=== PATIENT | female | born 1990 | race Caucasian/White ===

== ENCOUNTER 2016-09-03 06:38 | Emergency (ER) | payer MEDICAID ==
[~2016-09-03] VITALS: Ht 162.6 cm; Wt 44.1 kg
[~2016-09-03 06:38] MED LIST: MACR100C2 PO; REGL10TA5 PO; SPRI28TA PO
[2016-09-03 06:46] VITALS: BP 121/56; PULSE 87; RESP 18; TEMP 96.2; O2SAT 99
[2016-09-03] MEDS ORDERED: SODIUM CHLOR 0.9% 1000 ML INJ 1,000 ML IV ONE ×2 (07:00→08:30)
[2016-09-03] MEDS ORDERED: ONDANSETRON HCL 4 MG/2 ML VIAL IV PUSH ONE (07:00)
--- NOTE | 2016-09-03 07:03 | PD ---
HPI Chief Complaint: GI Complaint Time Seen by Provider: 06:57 Travel History International Travel<30 days: No Contact w/Intl Traveler<30days: No Traveled to known affect area: No History of Present Illness HPI This is a 25 year old female who presents to the emergency department with sudden onset nausea, vomiting and diarrhea that started last evening at 2 AM, constant, severe, associated with moderate severity cramping abdominal pain. Pt. reports that children around her have been sick with similar symptoms. She does feel feverish. She doesn't think she is , she is on OCPs. PFSH Past Medical History ADHD: No Bipolar Disorder: Yes (DOES NOT TAKE MEDS) Cancer: No Cardiovascular Problems: No Diabetes: No Diminished Hearing: No Genitourinary: Yes (UTI) Psychiatric: Yes Immunizations Current: Yes Migraines: No Seizures: No Thyroid Disease: No Ulcer: No ?: Unknown LMP: "1 month ago" Menopausal: No : 3 Para: 2 Miscarriage: 1 : 0 Past Surgical History Appendectomy: No Cholecystectomy: No Other Surgery: No Social History Alcohol Use: No Tobacco Use: Yes (/2 ppd) Substance Use: Yes (marijuana daily) Allergies-Medications (Allergen,Severity, Reaction): Coded Allergies: No Known Allergies (Unverified , 09/03/16) Reported Meds & Prescriptions Reported Meds & Active Scripts Active Reported Sprintec 28 (Norgestimate-Ethinyl Estradiol) 0.25-35 mg-Mcg Tab 1 Tab PO DAILY Review of Systems Except as stated in HPI: all other systems reviewed are Neg Physical Exam Narrative GENERAL:Well appearing, no acute distress SKIN: Warm and dry. HEAD: Atraumatic. Normocephalic. EYES: Pupils equal and round. No injection or drainage. ENT: Moist mucous membranes NECK: Trachea midline. CARDIOVASCULAR: Regular rate and rhythm. No murmur appreciated. RESPIRATORY: Clear to auscultation. Breath sounds equal bilaterally. GASTROINTESTINAL: Abdomen soft, non-tender, nondistended. MUSCULOSKELETAL: No obvious deformities. NEUROLOGICAL: Awake and alert. No obvious cranial nerve deficits. Moving all extremities. PSYCHIATRIC: Appropriate mood and affect; insight and judgment normal. Data Data Last Documented VS Vital Signs Date Time Temp Pulse Resp B/P Pulse Ox O2 Delivery O2 Flow Rate FiO2 09/03/16 08:24 71 16 106/54 100 Room Air 09/03/16 06:46 96.2 Orders Complete Blood Count With Diff (09/03/16 06:59) Comprehensive Metabolic Panel (09/03/16 06:59) Beta Hcg (Quant/Titer) (09/03/16 06:59) ^ Insert Iv (09/03/16 06:59) Sodium Chlor 0.9% 1000 Ml Inj (Ns 1000 M (09/03/16 07:00) Ondansetron Inj (Zofran Inj) (09/03/16 07:00) Lipase (09/03/16 06:59) Urinalysis - C+S If Indicated (09/03/16 06:59) Urine Culture (09/03/16 07:00) Ct Abd/Pel W Iv Contrast(Rout) (09/03/16 ) Promethazine Inj (Phenergan Inj) (09/03/16 08:00) Morphine Inj (Morphine Inj) (09/03/16 08:00) Iohexol 300 Inj (Rad Ct) (Omnipaque 300 (09/03/16 08:14) Ciprofloxacin 400 Mg Premix (Cipro 400 M (09/03/16 08:30) Metronidazole 500 Mg Inj (Flagyl 500 Mg (09/03/16 08:30) Ondansetron Inj (Zofran Inj) (09/03/16 08:30) Sodium Chlor 0.9% 1000 Ml Inj (Ns 1000 M (09/03/16 08:30) Labs Laboratory Tests Test 09/03/16 07:00 White Blood Count 22.7 TH/MM3 Red Blood Count 4.86 MIL/MM3 Hemoglobin 14.9 GM/DL Hematocrit 42.8 % Mean Corpuscular Volume 88.0 FL Mean Corpuscular Hemoglobin 30.6 PG Mean Corpuscular Hemoglobin 34.8 % Concent Red Cell Distribution Width 13.2 % Platelet Count 411 TH/MM3 Mean Platelet Volume 7.7 FL Neutrophils (%) (Auto) % Lymphocytes (%) (Auto) % Monocytes (%) (Auto) % Eosinophils (%) (Auto) % Basophils (%) (Auto) % Neutrophils # (Auto) TH/MM3 Lymphocytes # (Auto) TH/MM3 Monocytes # (Auto) TH/MM3 Eosinophils # (Auto) TH/MM3 Basophils # (Auto) TH/MM3 CBC Comment AUTO DIFF Differential Total Cells 100 Counted Neutrophils % (Manual) 80 % Band Neutrophils % 3 % Lymphocytes % 12 % Monocytes % 5 % Neutrophils # (Manual) 18.8 TH/MM3 Differential Comment FINAL DIFF MANUAL Platelet Estimate NORMAL Platelet Morphology Comment NORMAL Urine Collection Type CLEAN CATCH Urine Color YELLOW Urine Turbidity CLEAR Urine pH 6.0 Urine Specific [place] 1.025 Urine Protein 30 mg/dL Urine Glucose (UA) NEG mg/dL Urine Ketones TRACE mg/dL Urine Occult Blood NEG Urine Nitrite NEG Urine Bilirubin NEG Urine Leukocyte Esterase NEG Urine RBC 0-3 /hpf Urine WBC 9-14 /hpf Urine WBC Clumps RARE Urine Squamous Epithelial > 8 /hpf Cells Urine Bacteria FEW /hpf Urine Mucus FEW /lpf Microscopic Urinalysis Comment CULTURE INDICATED Urine Collection Time 07:00 Sodium Level 142 MEQ/L Potassium Level 3.7 MEQ/L Chloride Level 109 MEQ/L Carbon Dioxide Level 20.9 MEQ/L Anion Gap 12 MEQ/L Blood Urea Nitrogen 19 MG/DL Creatinine 0.89 MG/DL Estimat Glomerular Filtration 78 ML/MIN Rate Random Glucose 186 MG/DL Calcium Level 9.2 MG/DL Total Bilirubin 0.3 MG/DL Aspartate Amino Transf 17 U/L (AST/SGOT) Alanine Aminotransferase 22 U/L (ALT/SGPT) Alkaline Phosphatase 49 U/L Total Protein 7.7 GM/DL Albumin 4.1 GM/DL Lipase 155 U/L Human Chorionic Gonadotropin, LESS THAN 1 Quant MIU/ML MDM Medical Decision Making Medical Screen Exam Complete: Yes Emergency Medical Condition: Yes Interpretation(s) Hypothermia, no tachycardia, normotensive Leukocytosis with left shift Electrolytes are reassuring Lipase is normal HCG is negative Urinalysis: Some white blood cells Last 24 hours Impressions Abdomen/Pelvis CT 09/03/16 0000 Signed Impressions: Service Date/Time: Saturday, September 03, 2016 08:08 - CONCLUSION: Abnormal pelvis with trace fluid and cystic mass right adnexa. Nonspecific air-fluid levels in the colon in the pelvis.. Sid Kasper MD FACR Differential Diagnosis Gastroenteritis, colitis, appendicitis, dehydration Narrative Course This is a 25-year-old female who presents to the emergency department having woken up in the middle the night with nausea vomiting and diarrhea as well as left lower quadrant abdominal pain. Her daughter is been sick with similar symptoms. She was placed on a monitor and an IV was established. She was found to have a white count of 22.7. Electrolytes are reassuring. She was given 2 L of IV hydration, 2 doses of Zofran and IM Phenergan. She feels much better and was able to tolerate some oral hydration in the emergency Department. I had a conversation with the patient regarding inpatient versus outpatient management. She is young and otherwise healthy. CT is consistent with a likely early colitis with some air-fluid levels in the colon likely due to diarrhea. I think it's reasonable for her to manage this and has an outpatient. I Did give her a dose of IV antibiotics in the setting of her leukocytosis and I will discharge her on Cipro and Flagyl. She will return to the emergency department if she is not able to eat or drink for her symptoms are getting worse. Patient does have an incidental right ovarian cyst that is 3.8 cm. I don't think this is large enough to cause torsion I think her symptoms are much more consistent with a GI etiology. I did advise her to follow-up with an [facility] [facility] ENGINEER as an outpatient. Diagnosis Primary Impression: Colitis Patient Instructions: General Instructions Additional Instructions: If you develop severe or worsening abdominal pain, fever>100.4, persistent vomiting or inability to eat or drink return to the emergency department immediately. Follow up with your primary care physician in 1-2 days for a check-up. You have a 3.8 cm mass/cyst on your ovary which should be further evaluated by an medical record librarian as an outpatient. Med/Other Pt SpecificInfo: Prescription(s) given Scripts Ciprofloxacin 500 Mg Qte139 Mg PO BID 10 Days Prov:Mariela Robbins MD 09/03/16 Metronidazole (Flagyl)500 Mg [id number] Mg PO TID 10 Days Prov:Mariela Robbins MD 09/03/16 Ondansetron Odt (Zofran Odt)4 Mg Tab4 Mg SL Q6HR PRN (Nausea/Vomiting) #15 TAB Prov:Mariela Robbins MD 09/03/16 Disposition: 01 DISCHARGE HOME Condition: Stable Mariela Robbins MD Sep 03, 2016 07:03
[2016-09-03 07:17] LABS: BLOOD, URINE NEG (NEG); GLUCOSE,URINE NEG (NEG); KETONE, URINE TRACE mg/dL (NEG); NITRITE,URINE NEG (NEG)
[2016-09-03 07:18] LABS: HEMATOCRIT 42.8 % (35.0-46.0); MEAN CORPUSCULAR HEMOGLOBIN 30.6 PG (27.0-34.0); MEAN CORPUSCULAR HGB CONC 34.8 % (32.0-36.0); PLATELET COUNT 411 TH/MM3 (150-450); RED BLOOD COUNT 4.86 MIL/MM3 (4.00-5.30); RED CELL DISTRIBUTION WIDTH 13.2 % (11.6-17.2); WHITE BLOOD COUNT 22.7 TH/MM3 (4.0-11.0)
[2016-09-03 07:21] LABS: HEMO FLAGS AUTO DIFF
[2016-09-03 07:26] LABS: BACTERIA, URINE FEW /hpf; CHLORIDE 109 MEQ/L (98-107); COMMENT (UR) CULTURE INDICATED; CULTURE IF INDICATED CULTURE INDICATED; METHOD OF COLLECTION CLEAN CATCH; MUCUS URINE FEW /lpf (OCC); POTASSIUM 3.7 MEQ/L (3.5-5.1); RBC, URINE 0-3 /hpf (0-3); SODIUM (NA) 142 MEQ/L (136-145); SQUAMOUS EPITHELIAL CELL URINE > 8 /hpf (0-5); URINE COLOR YELLOW (YELLW/STRAW)
[2016-09-03 07:30] LABS: ANION GAP 12 MEQ/L (5-15); BICARBONATE 20.9 MEQ/L (21.0-32.0); BLOOD UREA NITROGEN 19 MG/DL (7-18)
[2016-09-03 07:33] LABS: ALT (GPT) 22 U/L (10-53); AST (GOT) 17 U/L (15-37); GLOMERULAR FILTRATION RATE 78 ML/MIN (>89)
[2016-09-03 07:34] LABS: TOTAL BILIRUBIN ADULT 0.3 MG/DL (0.2-1.0)
[2016-09-03 07:36] LABS: ALKALINE PHOSPHATASE 49 U/L (45-117)
[2016-09-03 07:37] LABS: BANDS 3 % (0-6); NEUTROPHIL # MANUAL DIFF 18.8 TH/MM3 (1.8-7.7); POLYS (SEG NEUTROPHILS) 80 % (16-70); WBC DIFF SAMPLE 100
[2016-09-03 07:38] LABS: BETA HCG QUANT LESS THAN 1 MIU/ML (0-5); PLATELET ESTIMATE SMEAR NORMAL (NORMAL); PLATELET MORPHOLOGY NORMAL (NORMAL); SCAN/DIFF FINAL DIFF MANUAL
[2016-09-03] MEDS ORDERED: PROMETHAZINE INJ 25 MG/ML VIAL IM ONE (08:00)
[2016-09-03] MEDS ORDERED: MORPHINE SULFATE 4 MG/ML INJ IV PUSH ONE (08:00)
[2016-09-03] MEDS ORDERED: IOHEXOL 300 MG/ML 100 ML BTL (for Rad CT) IV ONE (08:14)
--- NOTE | 2016-09-03 08:23 | RADHPO ---
EXAM DATE/TIME: 09/03/2016 08:08 [facility] COMPARISON: No previous studies available for comparison. INDICATIONS : Lower abdominal pain with vomiting and diarrhea. IV CONTRAST: 85 cc Omnipaque 300 (iohexol) IV ORAL CONTRAST: No oral contrast ingested. RADIATION DOSE: 4.45 CTDIvol (mGy) MEDICAL HISTORY : None SURGICAL HISTORY : None. ENCOUNTER: Initial ACUITY: 1 day PAIN SCALE: 1/10 LOCATION: lower quadrant TECHNIQUE: Volumetric scanning of the abdomen and pelvis was performed. Using automated exposure control and ad justment of the mA and/or kV according to patient size, radiation dose was kept as low as reasonably achievable to obtain optimal diagnostic quality images. FINDINGS: Very minimal parenchymal changes are present in the medial left base. The liver, spleen, pancreas an d adrenal glands are unremarkable. There is symmetrical renal function. There is no appendicitis. Pelvic contents are abnormal. There is trace fluid evident. There is a 3.8 cm cystic mass in the ri ght adnexa region. The left ovary is prominent. Minimal nonspecific focal bowel dilatation is evident. CONCLUSION: Abnormal pelvis with trace fluid and cystic mass right adnexa. Nonspecific air-fluid levels in the c olon in the pelvis.. Sid Kasper MD FACR on September 03, 2016 at 8:19 Board Certified Radiologist. This report was verified electronically.
[2016-09-03 08:24] VITALS: BP 106/54; PULSE 71; RESP 16; O2SAT 100
[2016-09-03] MEDS ORDERED: ONDANSETRON HCL 4 MG/2 ML VIAL IV ONE (08:30)
[2016-09-03] MEDS ORDERED: metroNIDAZOLE 500 MG INJ 100 ML IV ONE (08:30)
[2016-09-03] MEDS ORDERED: CIPROFLOXACIN 400 MG PREMIX 200 ML IV ONE (08:30)
[2016-09-03] MEDS ORDERED: CIPR500T2 PO (09:30)
[2016-09-03] MEDS ORDERED: ZOFR4TAB3 SL (09:30)
[2016-09-03] MEDS ORDERED: METR-1 PO (09:30)
[2016-09-03 09:48] VITALS: BP 99/49; PULSE 70; RESP 16; O2SAT 100
[2016-09-03 10:53] VITALS: BP 96/51
== END 2016-09-03 10:55 | disposition home or self-care (01) ==
LOC: PHED 06:38
DX: K52.9 Noninfective gastroenteritis and colitis, unspecified (principal); N83.201 Unspecified ovarian cyst, right side; N39.0 Urinary tract infection, site not specified; B96.89 Other specified bacterial agents as the cause of diseases classified elsewhere
CPT/HCPCS: 74177; 80053; 81001; 83690; 84702; 85007; 85027; 87086; 96361; 96365; 96367; 96372; 96375; 96376; 99284; J0744; J2270; J2405; J2550; J7030; Q9967

== ENCOUNTER 2016-10-30 06:02 | Emergency (ER) | payer MEDICAID ==
[~2016-10-30] VITALS: Ht 162.6 cm; Wt 42.0 kg
[~2016-10-30 06:02] MED LIST changes: +CIPR500T2 PO; -MACR100C2 PO; +METR-1 PO; -REGL10TA5 PO; +ZOFR4TAB3 SL
[2016-10-30 06:06] VITALS: BP 111/60; PULSE 71; RESP 14; TEMP 97.5; O2SAT 100
[2016-10-30] MEDS ORDERED: PROCHLORPERAZINE INJ 10 MG/2 ML VIAL IM ONE (06:30)
[2016-10-30] MEDS ORDERED: PROC10TA PO (06:30)
--- NOTE | 2016-10-30 06:30 | PD ---
HPI Chief Complaint: GI Complaint Time Seen by Provider: 06:15 Travel History International Travel<30 days: No Contact w/Intl Traveler<30days: No Traveled to known affect area: No History of Present Illness HPI The patient is a 25-year-old female who presents to the emergency department for vomiting. The patient has a 1 year history of cyclical vomiting. The patient states she will have a 3-4 days and of vomiting, especially in the mornings, approximately every 2 weeks. The patient also notes a history of chronic marijuana use, does note that she will take several hot showers during the day when she has her symptoms in that the hot showers improve her symptoms. The patient does states she stopped smoking marijuana while she was and her symptoms significantly improved. She denies any known history of gastroparesis. She has been diagnosed with gastritis in the past according to her report. The patient denies any abdominal pain or diarrhea. Symptoms are moderate, ongoing for a year, possibly exacerbated by marijuana, and alleviated when she was and not smoking marijuana. PFSH Past Medical History ADHD: No Bipolar Disorder: Yes (DOES NOT TAKE MEDS) Cancer: No Cardiovascular Problems: No Diabetes: No Diminished Hearing: No Genitourinary: Yes (UTI) Psychiatric: Yes Immunizations Current: Yes Migraines: No Seizures: No Thyroid Disease: No Ulcer: No Tetanus Vaccination: < 5 Years Influenza Vaccination: No ?: Not LMP: NOW Menopausal: No : 3 Para: 2 Miscarriage: 1 : 0 Past Surgical History Appendectomy: No Cholecystectomy: No Other Surgery: No Social History Alcohol Use: No Tobacco Use: Yes (1/2 ppd) Substance Use: Yes (marijuana daily) Allergies-Medications (Allergen,Severity, Reaction): Coded Allergies: No Known Allergies (Unverified , 10/30/16) Reported Meds & Prescriptions Reported Meds & Active Scripts Active No Active Prescriptions or Reported Medications Review of Systems Except as stated in HPI: all other systems reviewed are Neg General / Constitutional: No: Fever Cardiovascular: No: Chest Pain or Discomfort Respiratory: No: Shortness of Breath Gastrointestinal: Positive: Nausea, Vomiting, No: Diarrhea, Abdominal Pain Genitourinary: No: Dysuria Physical Exam Narrative GENERAL: Awake, alert, pleasant 25-year-old female who appears her stated age and is in no acute respiratory distress. SKIN: Warm and dry. HEAD: Atraumatic. Normocephalic. EYES: Pupils equal and round. No scleral icterus. No injection or drainage. ENT: No nasal bleeding or discharge. Mucous membranes pink and moist. NECK: Trachea midline. No JVD. GASTROINTESTINAL: Abdomen soft, non-tender, nondistended. No rebound tenderness , guarding, or rigidity. Back: No CVA tenderness. MUSCULOSKELETAL: No obvious deformities. No clubbing. No cyanosis. No edema. NEUROLOGICAL: Awake and alert. No obvious cranial nerve deficits. Motor grossly within normal limits. Normal speech. PSYCHIATRIC: Appropriate mood and affect; insight and judgment normal. Data Data Last Documented VS Vital Signs Date Time Temp Pulse Resp B/P Pulse Ox O2 Delivery O2 Flow Rate FiO2 10/30/16 06:18 16 10/30/16 06:06 97.5 71 111/60 100 Room Air Orders Prochlorperazine Inj (Compazine Inj) (10/30/16 06:30) MDM Medical Decision Making Medical Screen Exam Complete: Yes Emergency Medical Condition: Yes Medical Record Reviewed: Yes Differential Diagnosis Differential diagnosis includes cyclic vomiting syndrome, gastroparesis, cannabis hyperemesis syndrome, electrolyte abnormality, dehydration, morning sickness, . Narrative Course The patient states she has Zofran at home, states Zofran does not help. Therefore, the patient was administered Compazine IM. I advised the patient to try and stop smoking the marijuana to see if this improves her symptoms. The patient may have cannabis hyperemesis syndrome versus cyclic vomiting syndrome versus gastroparesis. She is also advised to follow-up with gastroenterology as directed. Clear liquid diet and advance as tolerated. Diagnosis Primary Impression: Cannabinoid hyperemesis syndrome Patient Instructions: General Instructions Additional Instructions: Stop smoking marijuana. Compazine as directed. Clear liquid diet and advance as tolerated. Follow-up with your primary physician. Med/Other Pt SpecificInfo: Prescription(s) given Scripts Prochlorperazine Maleate 10 Mg Tab10 Mg PO Q6H PRN (NAUSEA OR VOMITING) #15 TAB Ref 0 Prov:Nicholas Austin MD 10/30/16 Disposition: 01 DISCHARGE HOME Nicholas Austin MD Oct 30, 2016 06:30
[2017-02-20] MEDS ORDERED: FE FCAP PO (10:00)
[2017-02-20] MEDS ORDERED: FERR200T PO (10:00)
== END 2016-10-30 06:55 | disposition home or self-care (01) ==
LOC: NEPE 06:02
DX: R11.2 Nausea with vomiting, unspecified (principal); F17.210 Nicotine dependence, cigarettes, uncomplicated; F12.90 Cannabis use, unspecified, uncomplicated
CPT/HCPCS: 96372; 99283; J0780

== ENCOUNTER 2017-01-05 20:53 | Emergency (ER) | payer MEDICAID ==
[~2017-01-05] VITALS: Ht 162.6 cm; Wt 43.0 kg
[~2017-01-05 20:53] MED LIST changes: -CIPR500T2 PO; -METR-1 PO; +PROC10TA PO; -SPRI28TA PO; -ZOFR4TAB3 SL
[2017-01-05 20:54] VITALS: BP 131/69; PULSE 93; RESP 16; TEMP 99.2; O2SAT 100
--- NOTE | 2017-01-05 22:39 | PD ---
HPI Chief Complaint: GI Complaint Time Seen by Provider: 22:38 Travel History International Travel<30 days: No Contact w/Intl Traveler<30days: No Traveled to known affect area: No History of Present Illness HPI 26-year-old female came to the emergency room with history of nausea since yesterday. Been on and off nauseous and getting this warm feeling across her face and back. She is also has some pelvic and left lower quadrant discomfort. She was due for her. Last week but hasn't had one yet. Upon asking she said she did have a chance to be because she has had unprotected sex. She otherwise is a healthy person although she gets frequent vomiting and been in the emergency room for it multiple times. However she says this time it's difference and she is not really throwing up but just nauseous. PFSH Past Medical History Narrative Medical List of her past medical, surgical, social and family history is reviewed from the nursing note. ADHD: No Bipolar Disorder: Yes (DOES NOT TAKE MEDS) Cancer: No Cardiovascular Problems: No Diabetes: No Diminished Hearing: No Genitourinary: Yes (UTI) Psychiatric: Yes Immunizations Current: Yes Migraines: No Seizures: No Thyroid Disease: No Ulcer: No Tetanus Vaccination: < 5 Years Influenza Vaccination: No ?: Unknown LMP: JUST OVER 1 MONTH AGO Menopausal: No : 3 Para: 2 Miscarriage: 1 : 0 Past Surgical History Appendectomy: No Cholecystectomy: No Other Surgery: No Social History Alcohol Use: No Tobacco Use: Yes (1/2 ppd) Substance Use: Yes (marijuana daily) Allergies-Medications (Allergen,Severity, Reaction): Coded Allergies: No Known Allergies (Unverified , 01/05/17) Comments No known drug allergies. Reported Meds & Prescriptions Reported Meds & Active Scripts Active Dha (Docosahexaenoic Acid) 200 Mg Cap 1 Tab PO DAILY Zofran Odt (Ondansetron Odt) 4 Mg Tab 4 Mg SL Q6HR PRN Narrative Medication List of her home medications reviewed from the nursing note. Review of Systems Except as stated in HPI: all other systems reviewed are Neg Physical Exam Narrative GENERAL: Awake, alert, no obvious distress SKIN: Focused skin assessment warm/dry. HEAD: Atraumatic. Normocephalic. EYES: Pupils equal and round. No scleral icterus. No injection or drainage. ENT: No nasal bleeding or discharge. Mucous membranes pink and moist. NECK: Trachea midline. No JVD. CARDIOVASCULAR: Regular rate and rhythm. No murmur appreciated. RESPIRATORY: No accessory muscle use. Clear to auscultation. Breath sounds equal bilaterally. GASTROINTESTINAL: Abdomen soft, non-tender, nondistended. Hepatic and splenic margins not palpable. MUSCULOSKELETAL: No obvious deformities. No clubbing. No cyanosis. No edema. NEUROLOGICAL: Awake and alert. No obvious cranial nerve deficits. Motor grossly within normal limits. Normal speech. PSYCHIATRIC: Appropriate mood and affect; insight and judgment normal. Data Data Last Documented VS Vital Signs Date Time Temp Pulse Resp B/P Pulse Ox O2 Delivery O2 Flow Rate FiO2 01/05/17 20:54 99.2 93 16 131/69 100 Room Air Orders Ed Urine Pregnancytest Poc (01/05/17 22:42) Ondansetron Odt (Zofran Odt) (01/05/17 22:45) Urinalysis - C+S If Indicated (01/05/17 22:42) Labs Laboratory Tests Test 01/05/17 22:45 Urine Color LIGHT-YELLOW Urine Turbidity CLEAR Urine pH 7.0 Urine Specific [place] 1.007 Urine Protein NEG mg/dL Urine Glucose (UA) NEG mg/dL Urine Ketones 10 mg/dL Urine Occult Blood NEG Urine Nitrite NEG Urine Bilirubin NEG Urine Urobilinogen LESS THAN 2.0 MG/DL Urine Leukocyte Esterase NEG Urine RBC LESS THAN 1 /hpf Urine WBC LESS THAN 1 /hpf Urine Squamous Epithelial 3 /hpf Cells Urine Mucus FEW /lpf Microscopic Urinalysis Comment CULT NOT INDICATED MDM Medical Decision Making Medical Screen Exam Complete: Yes Emergency Medical Condition: Yes Medical Record Reviewed: Yes Differential Diagnosis , nausea Narrative Course 10:56 PM bedside urine was positive. Awaiting for UA. Patient has been given by mouth Zofran ODT. I will discharge her home eventually. She will need to find an OB for herself for the for near future. Procedures EKG Prior to Arrival: No Diagnosis Primary Impression: First trimester Referrals: Primary Care Physician 1 week Additional Instructions: Please trying to find an OB for this . Take the vitamins once a day as per the prescription direction. Return to the ER if the condition worsens or any other new concerns. Take nausea medicine as needed. Med/Other Pt SpecificInfo: Prescription(s) given Scripts Docosahexaenoic Acid ( Dha)200 Mg Cap1 Tab PO DAILY #30 Prov:Corrine Garcia MD 01/05/17 Ondansetron Odt (Zofran Odt)4 Mg Tab4 Mg SL Q6HR PRN (Nausea/Vomiting) #30 TAB Ref 0 Prov:Corrine Garcia MD 01/05/17 Disposition: 01 DISCHARGE HOME Condition: Stable Corrine Garcia MD January 05, 2017 22:39
[2017-01-05] MEDS ORDERED: ONDANSETRON ODT 4 MG TAB PO ONE (22:45)
[2017-01-05] MEDS ORDERED: ZOFR4TAB3 SL (22:58)
[2017-01-05] MEDS ORDERED: DOCO200C PO (22:58)
[2017-01-05 23:07] LABS: BLOOD, URINE NEG (NEG); COMMENT (UR) CULT NOT INDICATED; CULTURE IF INDICATED CULT NOT INDICATED; GLUCOSE,URINE NEG (NEG); KETONE, URINE 10 mg/dL (NEG); MUCUS URINE FEW /lpf (OCC); NITRITE,URINE NEG (NEG); SQUAMOUS EPITHELIAL CELL URINE 3 /hpf (0-5); URINE COLOR LIGHT-YELLOW (YELLW/STRAW)
[2017-02-20] MEDS ORDERED: FERR200T PO (10:00)
[2017-02-20] MEDS ORDERED: FE FCAP PO (10:00)
== END 2017-01-05 23:14 | disposition home or self-care (01) ==
LOC: NEPD 20:53
DX: Z32.01 Encounter for pregnancy test, result positive (principal); F17.210 Nicotine dependence, cigarettes, uncomplicated; F12.90 Cannabis use, unspecified, uncomplicated
CPT/HCPCS: 81001; 84703; 99284

== ENCOUNTER 2017-02-14 07:10 | Observation (INO) | payer MEDICAID ==
[~2017-02-14] VITALS: Ht 162.6 cm; Wt 41.1 kg
[2017-02-14] VITALS (9 sets, daily range): BP systolic 89–104; BP diastolic 51–58; PULSE 74–90; RESP 16–20; TEMP 97.5–98.7; O2SAT 100
[2017-02-14] MEDS ORDERED: SODIUM CHLOR 0.9% 1000 ML INJ 1,000 ML IV ONE (07:37)
--- NOTE | 2017-02-14 08:05 | PD ---
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 A2 white female, LMP December 06, 2016, presenting with worsening vaginal bleeding that has been occurring intermittently since January 26. On the , she reports going to [place] for an . Frm the - , she reports having increased vaginal bleeding and passing tissue. After this time, her bleeding became less but still persisted. She says last night, the bleeding increased and she passed 2 large golf ball sized clots. She has been experiencing associated fever, lightheadedness, nausea and cramping. She denies fever, chest pain, dyspnea, abdominal pain. In addition to her , she has history of ectopic in 2016 that passed naturally. She has not had any pain with her symptoms. She notes her vaginal bleeding is worse when laying down. She denies aggravating factors including trauma. She has no medical conditions and does not take any medications. She has no allergies. She smokes half a pack of cigarettes a day and smokes marijuana regularly. PFSH Past Medical History Narrative Medical N/C ADHD: No Bipolar Disorder: Yes (DOES NOT TAKE MEDS) Cancer: No Cardiovascular Problems: No Diabetes: No Diminished Hearing: No Genitourinary: Yes (UTI) Psychiatric: Yes Immunizations Current: Yes Migraines: No Seizures: No Thyroid Disease: No Ulcer: No ?: Not LMP: 2 months ago Menopausal: No : 3 Para: 2 Miscarriage: 1 : 0 Past Surgical History Surgical History: No Previous Surgery Appendectomy: No Cholecystectomy: No Other Surgery: No Social History Alcohol Use: No Tobacco Use: Yes (1/2 ppd) Substance Use: Yes (marijuana daily) Allergies-Medications (Allergen,Severity, Reaction): Coded Allergies: No Known Allergies (Unverified , 02/14/17) Reported Meds & Prescriptions Reported Meds & Active Scripts Active Citranatal [place] ( W/O Vit A W/ Fe Fumar) 27-1-260 Mg Cap Review of Systems Except as stated in HPI: all other systems reviewed are Neg Physical Exam Narrative GENERAL: Alert and oriented, appears fatigued. Was nauseated during the exam. Speaks in full sentences. PELVIC: Bright red blood and clots of blood in vault. Moderate volume blood. Multiple 3cm x 6cm clots. No CMT. No adnexal mass/tenderness. SKIN: Warm and dry. HEAD: Normocephalic. Mucous membranes dry. EYES: No scleral icterus. No injection or drainage. NECK: Supple, trachea midline. No JVD or lymphadenopathy. CARDIOVASCULAR: Regular rate and rhythm without murmurs, gallops, or rubs. RESPIRATORY: Breath sounds equal bilaterally. No accessory muscle use. GASTROINTESTINAL: Abdomen soft, non-tender, nondistended. MUSCULOSKELETAL: No cyanosis, or edema. BACK: Nontender without obvious deformity. No CVA tenderness. Data Data Last Documented VS Vital Signs Date Time Temp Pulse Resp B/P Pulse Ox O2 Delivery O2 Flow Rate FiO2 02/14/17 13:46 77 18 101/55 100 Room Air 02/14/17 07:29 98.1 VS reviewed Orders Beta Hcg (Quant/Titer) (02/14/17 07:37) Complete Blood Count With Diff (02/14/17 07:37) Basic Metabolic Panel (Bmp) (02/14/17 07:37) Urinalysis - C+S If Indicated (02/14/17 07:37) Sodium Chlor 0.9% 1000 Ml Inj (Ns 1000 M (02/14/17 07:37) Ed Urine Pregnancytest Poc (02/14/17 07:37) Gc And Chlamydia Pcr (02/14/17 07:44) Wet Prep Profile (02/14/17 07:44) Us Pelvis (Ques Pr/Ect)W Trans (02/14/17 ) Complete Blood Count With Diff (02/14/17 14:07) Type And Screen (02/14/17 14:56) Red Blood Cells (Rbc) (02/14/17 14:56) Blood Product Administration .UPON TRANSFUSION (02/14/17 14:56) Sodium Chlor 0.9% 250 Ml Inj (Ns 250 Ml (02/14/17 15:00) Admit Order (Ed Use Only) (02/14/17 14:58) Vital Signs (Adult) Q4H (02/14/17 14:59) Diet Npo (02/15/17 Breakfast) Activity Oob With Assistance (02/14/17 14:59) ^ Saline Lock (02/14/17 14:59) Resp Oxygen Luke C Titrat 1-4 L (02/14/17 ) Notify Dr: Other (02/14/17 14:59) Sodium Chloride 0.9% Flush (Ns Flush) (02/14/17 21:00) Sodium Chloride 0.9% Flush (Ns Flush) (02/14/17 15:00) Labs Laboratory Tests Test 02/14/17 02/14/17 07:45 14:30 White Blood Count 8.9 TH/MM3 8.5 TH/MM3 Red Blood Count 2.98 MIL/MM3 2.52 MIL/MM3 Hemoglobin 9.0 GM/DL 7.6 GM/DL Hematocrit 26.4 % 22.2 % Mean Corpuscular Volume 88.6 FL 88.2 FL Mean Corpuscular Hemoglobin 30.4 PG 30.3 PG Mean Corpuscular Hemoglobin 34.3 % 34.3 % Concent Red Cell Distribution Width 13.1 % 13.4 % Platelet Count 455 TH/MM3 399 TH/MM3 Mean Platelet Volume 7.1 FL 7.1 FL Neutrophils (%) (Auto) 53.3 % 67.9 % Lymphocytes (%) (Auto) 37.6 % 24.1 % Monocytes (%) (Auto) 6.2 % 6.5 % Eosinophils (%) (Auto) 1.8 % 0.6 % Basophils (%) (Auto) 1.1 % 0.9 % Neutrophils # (Auto) 4.7 TH/MM3 5.8 TH/MM3 Lymphocytes # (Auto) 3.3 TH/MM3 2.1 TH/MM3 Monocytes # (Auto) 0.5 TH/MM3 0.6 TH/MM3 Eosinophils # (Auto) 0.2 TH/MM3 0.1 TH/MM3 Basophils # (Auto) 0.1 TH/MM3 0.1 TH/MM3 CBC Comment DIFF FINAL DIFF FINAL Differential Comment Urine Color RED Urine Turbidity [place] Urine pH 8.5 Urine Specific [place] 1.036 Urine Protein GREATER THAN 600 mg/dL Urine Glucose (UA) 70 mg/dL Urine Ketones NEG mg/dL Urine Occult Blood LARGE Urine Nitrite NEG Urine Bilirubin NEG Urine Urobilinogen LESS THAN 2.0 MG/DL Urine Leukocyte Esterase NEG Urine RBC /hpf Microscopic Urinalysis Comment CULT NOT INDICATED Sodium Level 141 MEQ/L Potassium Level 3.6 MEQ/L Chloride Level 109 MEQ/L Carbon Dioxide Level 24.6 MEQ/L Anion Gap 7 MEQ/L Blood Urea Nitrogen 18 MG/DL Creatinine 0.62 MG/DL Estimat Glomerular Filtration 117 ML/MIN Rate Random Glucose 102 MG/DL Calcium Level 8.5 MG/DL Human Chorionic Gonadotropin, 678 MIU/ML Quant MDM Medical Decision Making Medical Screen Exam Complete: Yes Emergency Medical Condition: Yes Differential Diagnosis Septic , Implantation Bleed, Dysmenorrhea, Intrauterine , Ectopic , DIC, Acute Anemia, Hemorrhagic Shock Narrative Course This is a 26 y.o. white female presenting with vaginal bleeding of 2 week duration that has worsened last night. After receiving and on January 26 , she reports passing tissue and clots for 5 days. After this, she had mild vaginal bleeding that peaked last night. Patient agrees to blood testing, test, pelvic exam and U/S to further evaluate her symptoms. CBC & BMP Diagram 02/14/17 07:45 Beta 678 UA: hematuria, no UTI Last 24 hours Impressions Pelvis Ultrasound 02/14/17 0000 Signed Impressions: Service Date/Time: Tuesday, February 14, 2017 09:17 - CONCLUSION: 1. Abnormal appearance of the uterus with fluid in the endometrial cavity as well as echogenic debris within the endometrial cavity measuring 2.4 cm. Blood clot versus retained products of conception are the primary considerations. 2. Nonspecific echogenic mass along the lower uterine segment measuring 7.6 x 6.7 cm. 3. No free fluid in the cul-de-sac. Zain Alegre MD Patient discussed with Dr. Lawrence of obstetrics who will evaluate the patient at the bedside. She has remained hemodynamically stable throughout ER course. Repeat Hb 7.6 down from 9.0 over approx 6 hours. Case d/w Dr Lawrence for obstetrics hospitalist service. 1unit PRBCs ordered. Diagnosis Primary Impression: Vaginal bleeding Additional Impression: Acute blood loss anemia Admitting Information Admitting Physician Requests: Observation Remy Hughes MD Feb 14, 2017 08:05
[2017-02-14 08:18] LABS: AUTOMATED NEUTROPHIL # 4.7 TH/MM3 (1.8-7.7); BASOPHIL # 0.1 TH/MM3 (0-0.2); BASOPHIL % 1.1 % (0.0-2.0); EOSINOPHIL # 0.2 TH/MM3 (0-0.4); EOSINOPHIL % 1.8 % (0.0-4.0); HEMATOCRIT 26.4 % (35.0-46.0); HEMO FLAGS DIFF FINAL; LYMPH % 37.6 % (9.0-44.0); LYMPHOCYTE # 3.3 TH/MM3 (1.0-4.8); MEAN CELL VOLUME 88.6 FL (80.0-100.0); MEAN CORPUSCULAR HEMOGLOBIN 30.4 PG (27.0-34.0); MEAN CORPUSCULAR HGB CONC 34.3 % (32.0-36.0); MONO % 6.2 % (0.0-8.0); NEUT % 53.3 % (16.0-70.0); PLATELET COUNT 455 TH/MM3 (150-450); RED BLOOD COUNT 2.98 MIL/MM3 (4.00-5.30); RED CELL DISTRIBUTION WIDTH 13.1 % (11.6-17.2); WHITE BLOOD COUNT 8.9 TH/MM3 (4.0-11.0)
[2017-02-14 08:31] LABS: COMMENT (UR) CULT NOT INDICATED; CULTURE IF INDICATED CULT NOT INDICATED; GLUCOSE,URINE 70 mg/dL (NEG); KETONE, URINE NEG (NEG); NITRITE,URINE NEG (NEG); PH, URINE 8.5 (5.0-8.5)
[2017-02-14 08:32] LABS: BLOOD, URINE LARGE (NEG); URINE COLOR RED (YELLW/STRAW)
[2017-02-14 08:47] LABS: BICARBONATE 24.6 MEQ/L (21.0-32.0); POTASSIUM 3.6 MEQ/L (3.5-5.1)
--- NOTE | 2017-02-14 10:13 | RADRPT ---
EXAM DATE/TIME: 02/14/2017 09:17 [facility] COMPARISON: No previous studies available for comparison. INDICATIONS : Heavy vaginal bleeding with large clots; post 01/26/17. LAB(S): Beta-hC MEDICAL HISTORY : . SURGICAL HISTORY : 01/26/2017. ENCOUNTER: Initial ACUITY: 3 weeks PAIN SCORE: 0/10 LOCATION: Bilateral pelvis MEASUREMENTS: UTERUS: 14.9 x 5.6 x 4.1 cm ENDOMETRIAL STRIPE: 4 mm RIGHT OVARY: 2.7 x 3.4 x 2.4 cm LEFT OVARY: non visualized. FREE FLUID: No CROWN RUMP LENGTH: not seen = WKS DAYS FHR: not seen BPM FINDINGS: UTERUS: Uterus has an abnormal appearance. There is fluid in the endometrial cavity. There is echogenic mater ial within the endometrial cavity measuring 2.4 x 1.9 cm. Blood clot versus retained products of conc eption are the considerations. There also appears to be a nonspecific mass along the lower uterine se gment measuring 7.6 x 6.7 x 4.1 cm. No definite free fluid is seen in the cul-de-sac. RIGHT OVARY: Ovary contains no mass or significant cystic lesion. LEFT OVARY: Not visualized MISCELLANEOUS: No free fluid. CONCLUSION: 1. Abnormal appearance of the uterus with fluid in the endometrial cavity as well as echogenic debris within the endometrial cavity measuring 2.4 cm. Blood clot versus retained products of conception ar e the primary considerations. 2. Nonspecific echogenic mass along the lower uterine segment measuring 7.6 x 6.7 cm. 3. No free fluid in the cul-de-sac. Zain Alegre MD on February 14, 2017 at 10:06 Board Certified Radiologist. This report was verified electronically.
[2017-02-14 14:48] LABS: AUTOMATED NEUTROPHIL # 5.8 TH/MM3 (1.8-7.7); BASOPHIL # 0.1 TH/MM3 (0-0.2); BASOPHIL % 0.9 % (0.0-2.0); EOSINOPHIL # 0.1 TH/MM3 (0-0.4); EOSINOPHIL % 0.6 % (0.0-4.0); HEMATOCRIT 22.2 % (35.0-46.0); HEMO FLAGS DIFF FINAL; LYMPH % 24.1 % (9.0-44.0); LYMPHOCYTE # 2.1 TH/MM3 (1.0-4.8); MEAN CELL VOLUME 88.2 FL (80.0-100.0); MEAN CORPUSCULAR HEMOGLOBIN 30.3 PG (27.0-34.0); MEAN CORPUSCULAR HGB CONC 34.3 % (32.0-36.0); MONO % 6.5 % (0.0-8.0); NEUT % 67.9 % (16.0-70.0); PLATELET COUNT 399 TH/MM3 (150-450); RED BLOOD COUNT 2.52 MIL/MM3 (4.00-5.30); RED CELL DISTRIBUTION WIDTH 13.4 % (11.6-17.2); WHITE BLOOD COUNT 8.5 TH/MM3 (4.0-11.0)
[2017-02-14] MEDS ORDERED: SODIUM CHLORIDE 0.9% FLUSH 10 ML FLUSH IVF PRN (15:00)
[2017-02-14] MEDS ORDERED: SODIUM CHLOR 0.9% 250 ML INJ 250 ML IV ONE (15:00)
--- NOTE | 2017-02-14 15:57 | PD.CONS ---
HPI Chief Complaint heavy vaginal bleeding Date Seen: Feb 14, 2017 Travel History International Travel<30 Days: No Contact w/Intl Traveler<30Days: No Known Affected Area: No History of Present Illness HPI This is a 25y/o s/p medical etop on 01/26 who presents for evaluation of heavy menstrual bleeding. Pt went to a clinic in [place] where she was given a regimen of multiple pills to be taken buccally. She initially had heavy bleeding which subsided a few days after starting her course of medication. The most recent bleeding episode started on with passage of large clots she feels a lot of vaginal/rectal pressure. She denies headaches, chest pain, dizziness or shortness of breath. In the ed initial HB noted to be 9/26 with repeat 7.02/12. Para: 2 : 4 Miscarriage: 1 : 1 History Past Medical History Narrative Medical Bipolar d/o, no meds Obstetric History Obstetric History 06/01/14 FT 6lb7oz, Female 04/23/16 34w2d 4lb, Male ? Etopic/sab, no surgery, ? medications 01/27/2016 ETOP Past Surgical History Surgical History: No Previous Surgery Family History Family History: Social History Alcohol Use: No Tobacco Use: No Substance Abuse: No Allergies-Medications (Allergen,Severity, Reaction): Coded Allergies: No Known Allergies (Unverified , 02/14/17) Home Meds Active Scripts W/O Vit A W/ Fe Fumar (Citranatal [place])27-1-260 Mg Cap Sample #2 Prov:Alphonso Huang MD 01/20/17 Review of Systems Except as stated in HPI: all other systems reviewed are Neg Physical Exam Vital Signs Date Time Temp Pulse Resp B/P Pulse Ox O2 Delivery O2 Flow Rate FiO2 02/14/17 13:46 77 18 101/55 100 Room Air 02/14/17 09:10 83 18 94/55 100 Room Air 02/14/17 07:29 90 18 02/14/17 07:29 98.1 90 18 101/52 100 Room Air Narrative GENERAL: Well-nourished, well-developed patient. SKIN: Warm and dry. HEAD: Normocephalic and atraumatic. EYES: No scleral icterus. No injection or drainage. ENT: No nasal drainage noted. Mucous membranes pink. Airway patent. NECK: Supple, trachea midline. No JVD. CARDIOVASCULAR: Regular rate and rhythm without murmurs, gallops, or rubs. RESPIRATORY: Breath sounds equal bilaterally. No accessory muscle use. BREASTS: Bilateral exam showed no masses , no retractions, no nipple discharge. ABDOMEN/GI: Abdomen soft, non-tender, bowel sounds present, no rebound, no guarding GENITOURINARY: External Genitalia: intact and normal in appearance Bedside speculum exam: copious clots evacuated, maybe some POCs, ~300+ml ebl ; minimal bleeding noted after blood clots were evacuated EXTREMITIES: No cyanosis or edema. BACK: Nontender without obvious deformity. No CVA tenderness. NEUROLOGICAL: Awake and alert. Motor and sensory grossly within normal limits. Five out of 5 muscle strength in all muscle groups. Normal speech. Data Data Orders Beta Hcg (Quant/Titer) (02/14/17 07:37) Complete Blood Count With Diff (02/14/17 07:37) Basic Metabolic Panel (Bmp) (02/14/17 07:37) Urinalysis - C+S If Indicated (02/14/17 07:37) Sodium Chlor 0.9% 1000 Ml Inj (Ns 1000 M (02/14/17 07:37) Ed Urine Pregnancytest Poc (02/14/17 07:37) Gc And Chlamydia Pcr (02/14/17 07:44) Wet Prep Profile (02/14/17 07:44) Us Pelvis (Ques Pr/Ect)W Trans (02/14/17 ) Complete Blood Count With Diff (02/14/17 14:07) Type And Screen (02/14/17 14:56) Red Blood Cells (Rbc) (02/14/17 14:56) Blood Product Administration .UPON TRANSFUSION (02/14/17 14:56) Sodium Chlor 0.9% 250 Ml Inj (Ns 250 Ml (02/14/17 15:00) Red Blood Cells (Rbc) (02/14/17 14:58) Admit Order (Ed Use Only) (02/14/17 14:58) Vital Signs (Adult) Q4H (02/14/17 14:59) Diet Npo (02/15/17 Breakfast) Activity Oob With Assistance (02/14/17 14:59) ^ Saline Lock (02/14/17 14:59) Resp Oxygen Luke C Titrat 1-4 L (02/14/17 ) Notify Dr: Other (02/14/17 14:59) Sodium Chloride 0.9% Flush (Ns Flush) (02/14/17 21:00) Sodium Chloride 0.9% Flush (Ns Flush) (02/14/17 15:00) Labs Laboratory Tests Test 02/14/17 02/14/17 07:45 14:30 White Blood Count 8.9 8.5 Red Blood Count 2.98 2.52 Hemoglobin 9.0 7.6 Hematocrit 26.4 22.2 Mean Corpuscular Volume 88.6 88.2 Mean Corpuscular Hemoglobin 30.4 30.3 Mean Corpuscular Hemoglobin 34.3 34.3 Concent Red Cell Distribution Width 13.1 13.4 Platelet Count 455 399 Mean Platelet Volume 7.1 7.1 Neutrophils (%) (Auto) 53.3 67.9 Lymphocytes (%) (Auto) 37.6 24.1 Monocytes (%) (Auto) 6.2 6.5 Eosinophils (%) (Auto) 1.8 0.6 Basophils (%) (Auto) 1.1 0.9 Neutrophils # (Auto) 4.7 5.8 Lymphocytes # (Auto) 3.3 2.1 Monocytes # (Auto) 0.5 0.6 Eosinophils # (Auto) 0.2 0.1 Basophils # (Auto) 0.1 0.1 CBC Comment DIFF FINAL DIFF FINAL Differential Comment Urine Color RED Urine Turbidity [place] Urine pH 8.5 Urine Specific [place] 1.036 Urine Protein GREATER THAN 600 Urine Glucose (UA) 70 Urine Ketones NEG Urine Occult Blood LARGE Urine Nitrite NEG Urine Bilirubin NEG Urine Urobilinogen LESS THAN 2.0 Urine Leukocyte Esterase NEG Urine RBC Microscopic Urinalysis Comment CULT NOT INDICATED Sodium Level 141 Potassium Level 3.6 Chloride Level 109 Carbon Dioxide Level 24.6 Anion Gap 7 Blood Urea Nitrogen 18 Creatinine 0.62 Estimat Glomerular Filtration 117 Rate Random Glucose 102 Calcium Level 8.5 Human Chorionic Gonadotropin, 678 Quant MDM Medical Record Reviewed: No Narrative Course / MDM 25y/o s/p medical etop on 01/26 with acute episode of heavy bleeding. -Acute blood loss h/h from 05/19 to 7.02/12 Plan -admit for blood transfusion of 1 unit PRBCs -monitor bleeding if >2 pads/hour will need D&C -pt not interested in D&C and prefers medical management -Methergine .2mg three times per day Admitting diagnosis: Vaginal Bleeding, Acute Anemia Jolly Lawrence MD Feb 14, 2017 15:57
[2017-02-14] MEDS ORDERED: ONDANSETRON HCL 4 MG/2 ML VIAL IVP PRN (16:00)
[2017-02-14] MEDS ORDERED: BISACODYL 10 MG SUPP RECTAL PRN (16:00)
[2017-02-14] MEDS ORDERED: ZOLPIDEM TARTRATE 5 MG TAB PO PRN (16:00)
[2017-02-14] MEDS ORDERED: LACTULOSE SYRUP 20 GM/30 ML CUP PO PRN (16:00)
[2017-02-14] MEDS ORDERED: ACETAMINOPHEN 325 MG TAB PO PRN (16:00)
[2017-02-14] MEDS ORDERED: MAGNESIUM HYDROXIDE SUSP 30 ML CUP PO PRN (16:00)
[2017-02-14] MEDS ORDERED: SENNOSIDES 8.6 MG TAB PO PRN (16:00)
[2017-02-14] MEDS ORDERED: NALOXONE HCL 0.4 MG/ML AMP IV PRN (16:00)
--- NOTE | 2017-02-14 16:03 | HHI.HP ---
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 Pt went to a clinic in [place] where she was given a regimen of multiple pills to be taken buccally. She initially had heavy bleeding which subsided a few days after starting her course of medication. The most recent bleeding episode started on with passage of large clots she feels a lot of vaginal/rectal pressure. She denies headaches, chest pain, dizziness or shortness of breath. In the ed initial HB noted to be 9/26 with repeat 7./. Para: 2 : 4 Miscarriage: 1 : 1 History (Limited) History Past Medical History Narrative Medical Bipolar d/o, no meds Obstetric History Obstetric History 06/01/14 FT 6lb7oz, Female 04/23/16 34w2d 4lb, Male ? Etopic/sab, no surgery, ? medications 01/27/2016 ETOP Past Surgical History Surgical History: No Previous Surgery Family History Family History: Social History Alcohol Use: No Tobacco Use: No Substance Abuse: No Allergies-Medications Allergies-Medications (Allergen,Severity, Reaction): Coded Allergies: No Known Allergies (Unverified , 02/14/17) Home Meds Active Scripts W/O Vit A W/ Fe Fumar (Citranatal [place])27-1-260 Mg Cap Sample #2 Prov:Alphonso Huang MD 01/20/17 ROS Review of Systems Except as stated in HPI: all other systems reviewed are Neg Physical Exam Physical Exam Vital Signs Date Time Temp Pulse Resp B/P Pulse Ox O2 Delivery O2 Flow Rate FiO2 02/14/17 13:46 77 18 101/55 100 Room Air 02/14/17 09:10 83 18 94/55 100 Room Air 02/14/17 07:29 90 18 02/14/17 07:29 98.1 90 18 101/52 100 Room Air Narrative GENERAL: Well-nourished, well-developed patient. SKIN: Warm and dry. HEAD: Normocephalic and atraumatic. EYES: No scleral icterus. No injection or drainage. ENT: No nasal drainage noted. Mucous membranes pink. Airway patent. NECK: Supple, trachea midline. No JVD. CARDIOVASCULAR: Regular rate and rhythm without murmurs, gallops, or rubs. RESPIRATORY: Breath sounds equal bilaterally. No accessory muscle use. BREASTS: Bilateral exam showed no masses , no retractions, no nipple discharge. ABDOMEN/GI: Abdomen soft, non-tender, bowel sounds present, no rebound, no guarding GENITOURINARY: External Genitalia: intact and normal in appearance Bedside speculum exam: copious clots evacuated, maybe some POCs, ~300+ml ebl ; minimal bleeding noted after blood clots were evacuated EXTREMITIES: No cyanosis or edema. BACK: Nontender without obvious deformity. No CVA tenderness. NEUROLOGICAL: Awake and alert. Motor and sensory grossly within normal limits. Five out of 5 muscle strength in all muscle groups. Normal speech. Data Data Data Orders Beta Hcg (Quant/Titer) (02/14/17 07:37) Complete Blood Count With Diff (02/14/17 07:37) Basic Metabolic Panel (Bmp) (02/14/17 07:37) Urinalysis - C+S If Indicated (02/14/17 07:37) Sodium Chlor 0.9% 1000 Ml Inj (Ns 1000 M (02/14/17 07:37) Ed Urine Pregnancytest Poc (02/14/17 07:37) Gc And Chlamydia Pcr (02/14/17 07:44) Wet Prep Profile (02/14/17 07:44) Us Pelvis (Ques Pr/Ect)W Trans (02/14/17 ) Complete Blood Count With Diff (02/14/17 14:07) Type And Screen (02/14/17 14:56) Red Blood Cells (Rbc) (02/14/17 14:56) Blood Product Administration .UPON TRANSFUSION (02/14/17 14:56) Sodium Chlor 0.9% 250 Ml Inj (Ns 250 Ml (02/14/17 15:00) Red Blood Cells (Rbc) (02/14/17 14:58) Admit Order (Ed Use Only) (02/14/17 14:58) Vital Signs (Adult) Q4H (02/14/17 14:59) Diet Npo (02/15/17 Breakfast) Activity Oob With Assistance (02/14/17 14:59) ^ Saline Lock (02/14/17 14:59) Resp Oxygen Luke C Titrat 1-4 L (02/14/17 ) Notify Dr: Other (02/14/17 14:59) Sodium Chloride 0.9% Flush (Ns Flush) (02/14/17 21:00) Sodium Chloride 0.9% Flush (Ns Flush) (02/14/17 15:00) Labs Laboratory Tests Test 02/14/17 02/14/17 07:45 14:30 White Blood Count 8.9 8.5 Red Blood Count 2.98 2.52 Hemoglobin 9.0 7.6 Hematocrit 26.4 22.2 Mean Corpuscular Volume 88.6 88.2 Mean Corpuscular Hemoglobin 30.4 30.3 Mean Corpuscular Hemoglobin 34.3 34.3 Concent Red Cell Distribution Width 13.1 13.4 Platelet Count 455 399 Mean Platelet Volume 7.1 7.1 Neutrophils (%) (Auto) 53.3 67.9 Lymphocytes (%) (Auto) 37.6 24.1 Monocytes (%) (Auto) 6.2 6.5 Eosinophils (%) (Auto) 1.8 0.6 Basophils (%) (Auto) 1.1 0.9 Neutrophils # (Auto) 4.7 5.8 Lymphocytes # (Auto) 3.3 2.1 Monocytes # (Auto) 0.5 0.6 Eosinophils # (Auto) 0.2 0.1 Basophils # (Auto) 0.1 0.1 CBC Comment DIFF FINAL DIFF FINAL Differential Comment Urine Color RED Urine Turbidity [place] Urine pH 8.5 Urine Specific [place] 1.036 Urine Protein GREATER THAN 600 Urine Glucose (UA) 70 Urine Ketones NEG Urine Occult Blood LARGE Urine Nitrite NEG Urine Bilirubin NEG Urine Urobilinogen LESS THAN 2.0 Urine Leukocyte Esterase NEG Urine RBC Microscopic Urinalysis Comment CULT NOT INDICATED Sodium Level 141 Potassium Level 3.6 Chloride Level 109 Carbon Dioxide Level 24.6 Anion Gap 7 Blood Urea Nitrogen 18 Creatinine 0.62 Estimat Glomerular Filtration 117 Rate Random Glucose 102 Calcium Level 8.5 Human Chorionic Gonadotropin, 678 Quant MDM MDM Medical Record Reviewed: No Narrative Course / MDM 25y/o s/p medical etop on 01/26 with acute episode of heavy bleeding. -Acute blood loss h/h from 05/19 to 7.02/12 Plan -admit for blood transfusion of 1 unit PRBCs -monitor bleeding if >2 pads/hour will need D&C -pt not interested in D&C and prefers medical management -Methergine .2mg three times per day Admitting diagnosis: Vaginal Bleeding, Acute Anemia Jolly Lawrence MD Feb 14, 2017 15:40 Jolly Lawrence MD Feb 14, 2017 16:03
[2017-02-14] MEDS: METHYLERGONOVINE MALEATE 0.2 MG TAB PO SCH (18:08)
[2017-02-14] MEDS: DOCUSATE SODIUM 50 MG/SENNA 8.6 MG TAB PO SCH (21:11)
[2017-02-14] MEDS: SODIUM CHLORIDE 0.9% FLUSH 10 ML FLUSH IV FLUSH SCH (21:11)
--- NOTE | 2017-02-14 22:06 | HHI.PR ---
Subjective Remarks This is a 25y/o s/p medical etop on 01/26 who presented for evaluation of heavy menstrual bleeding. She was noted to have a drop in h/h from 05/19 with repeat .02/12 and was admitted for blood transfusion. On exam copious amount of blood clots evacuated from the vaginal vault. Pt declined a D&C and wanted to continue medical management. Methergine started on admission. Pt states bleeding is ok, just passing a few clots. Objective - Vital Signs Date Time Temp Pulse Resp B/P Pulse Ox O2 Delivery O2 Flow Rate FiO2 02/14/17 20:00 98.5 74 16 102/55 100 02/14/17 17:15 Room Air Result Diagram: 02/14/17 1430 02/14/17 0745 A/P Problem List: (1) Incomplete with delayed or excessive hemorrhage ICD Code: O03.1 Assessment and Plan 25y/o s/p medical etop on 01/26 with heavy bleeding, drop in h/h from with repeat and was admitted for blood transfusion. -s/p 1 unit PRBCs -cbc pending -stable, no excessive bleeding noted on exam -repeat u/s to access uterine lining due to large amount of clots noted on earlier ultrasound. Jolly Lawrence MD Feb 14, 2017 22:06
[2017-02-15] VITALS: BP 109/58; PULSE 87; RESP 18; TEMP 98.6; O2SAT 100
[2017-02-15] MEDS: METHYLERGONOVINE MALEATE 0.2 MG TAB PO SCH ×3 (00:30→08:41)
[2017-02-15 02:30] LABS: AUTOMATED NEUTROPHIL # 4.2 TH/MM3 (1.8-7.7); BASOPHIL # 0.1 TH/MM3 (0-0.2); BASOPHIL % 0.8 % (0.0-2.0); EOSINOPHIL % 0.2 % (0.0-4.0); HEMATOCRIT 23.1 % (35.0-46.0); HEMO FLAGS DIFF FINAL; LYMPH % 32.4 % (9.0-44.0); LYMPHOCYTE # 2.3 TH/MM3 (1.0-4.8); MEAN CELL VOLUME 84.1 FL (80.0-100.0); MEAN CORPUSCULAR HEMOGLOBIN 28.4 PG (27.0-34.0); MEAN CORPUSCULAR HGB CONC 33.8 % (32.0-36.0); MONO % 8.1 % (0.0-8.0); NEUT % 58.5 % (16.0-70.0); PLATELET COUNT 313 TH/MM3 (150-450); RED BLOOD COUNT 2.75 MIL/MM3 (4.00-5.30); RED CELL DISTRIBUTION WIDTH 16.8 % (11.6-17.2); WHITE BLOOD COUNT 7.2 TH/MM3 (4.0-11.0)
[2017-02-15 04:00] VITALS: BP 95/54; PULSE 60; RESP 16; TEMP 98.3; O2SAT 100
[2017-02-15 08:00] VITALS: BP 97/64; PULSE 69; RESP 21; TEMP 98.3; O2SAT 100
[2017-02-15] MEDS: DOCUSATE SODIUM 50 MG/SENNA 8.6 MG TAB PO SCH (08:38)
[2017-02-15] MEDS: SODIUM CHLORIDE 0.9% FLUSH 10 ML FLUSH IV FLUSH SCH (08:41)
[2017-02-15 09:30] VITALS: O2SAT 98
[2017-02-15 09:38] LABS: AUTOMATED NEUTROPHIL # 3.2 TH/MM3 (1.8-7.7); BASOPHIL # 0.1 TH/MM3 (0-0.2); BASOPHIL % 1.2 % (0.0-2.0); EOSINOPHIL # 0.1 TH/MM3 (0-0.4); EOSINOPHIL % 0.9 % (0.0-4.0); HEMATOCRIT 24.6 % (35.0-46.0); HEMO FLAGS DIFF FINAL; LYMPH % 36.3 % (9.0-44.0); LYMPHOCYTE # 2.1 TH/MM3 (1.0-4.8); MEAN CELL VOLUME 84.2 FL (80.0-100.0); MEAN CORPUSCULAR HEMOGLOBIN 28.9 PG (27.0-34.0); MEAN CORPUSCULAR HGB CONC 34.3 % (32.0-36.0); MONO % 7.7 % (0.0-8.0); NEUT % 53.9 % (16.0-70.0); PLATELET COUNT 356 TH/MM3 (150-450); RED BLOOD COUNT 2.92 MIL/MM3 (4.00-5.30); RED CELL DISTRIBUTION WIDTH 16.1 % (11.6-17.2); WHITE BLOOD COUNT 5.9 TH/MM3 (4.0-11.0)
--- NOTE | 2017-02-15 09:38 | HHI.PR ---
Subjective Remarks This is a 25y/o s/p medical etop on 01/26 who presented for evaluation of heavy menstrual bleeding. She was noted to have a drop in h/h from 05/19 with repeat 7.02/12 and was admitted for blood transfusion. On exam copious amount of blood clots evacuated from the vaginal vault. Pt declined a D&C and wanted to continue medical management. Methergine started on admission. Pt states bleeding has decreased significantly overnight. She has been ambulating to the restroom well with no issues. Objective Vital Signs Date Time Temp Pulse Resp B/P Pulse Ox O2 Delivery O2 Flow Rate FiO2 02/15/17 08:00 98.3 69 21 97/64 100 02/15/17 04:00 98.3 60 16 95/54 100 02/15/17 00:00 98.6 87 18 109/58 100 02/14/17 20:44 100 21 02/14/17 20:00 98.5 74 16 102/55 100 02/14/17 18:32 97.5 77 20 104/51 100 02/14/17 18:25 98.7 89 18 89/52 100 02/14/17 17:15 98.7 84 18 94/51 100 Room Air 02/14/17 17:05 98.5 88 18 104/58 100 Room Air 02/14/17 13:46 77 18 101/55 100 Room Air I/O 02/14/17 02/14/17 02/14/17 02/15/17 02/15/17 02/15/17 07:00 15:00 23:00 07:00 15:00 23:00 Intake Total 1000 ml Balance 1000 ml Intake IV Total 1000 ml # Voids 5 1 2 # Sanitary Pads 1 Pads 1 Pads 1 Pads Result Diagram: 02/15/17 0214 02/14/17 0745 Objective Remarks Abd: soft, nt/nd Pelvic: minimal bleeding Assessment and Plan Problem List: (1) Incomplete with delayed or excessive hemorrhage Status: Acute Assessment and Plan 25y/o s/p medical etop on 01/26, s/p 1 unit PRBCs -f/u repeat cbc -f/u us results -likely d/c home today pending above results. Jolly Lawrence MD Feb 15, 2017 09:38
--- NOTE | 2017-02-15 10:01 | RADRPT ---
EXAM DATE/TIME: 02/15/2017 09:16 [place] COMPARISON: CT ABDOMEN & PELVIS W CONTRAST, September 03, 2016, 8:08. US PELVIS (QUEST PREG/ECTOPIC) W/TRANSVAG, J une 2016, 9:17. INDICATIONS : Bleeding post . MEDICAL HISTORY : . Prior ectopic . Recent medication induced . Bipolar disorder. SURGICAL HISTORY : None. ENCOUNTER: Subsequent ACUITY: 2 days PAIN SCORE: 0/10 LOCATION: Bilateral pelvis MEASUREMENTS: UTERUS: 9.8 x 5.8 x 4.9 cm ENDOMETRIAL STRIPE: 12 mm RIGHT OVARY: 2.6 x 2.9 x 1.8 cm LEFT OVARY: 3.6 x 3.2 x 3.0 cm FINDINGS: UTERUS: On today's examination the endometrial cavity remains thickened with some echogenic debris within the endometrial cavity. However this appears to be improved compared to the prior examination. Also, the complex mass along the lower uterine segment has also improved compared to the prior study. This is most likely blood clot that has since passed. RIGHT OVARY: Ovary contains no mass or significant cystic lesion. LEFT OVARY: Ovary contains no mass or significant cystic lesion. MISCELLANEOUS: No free fluid. CONCLUSION: There continues to be some debris within the endometrial cavity with thickening of the endometrial li demond. However, this is improved compared to the prior examination. Also, the previously noted complex mass in the lower uterine segment has improved most likely representing previous hemorrhage which cunha s been expelled. Zain Alegre MD on February 15, 2017 at 9:55 Board Certified Radiologist. This report was verified electronically.
[2017-02-15] MEDS ORDERED: METH-703 PO (10:16)
--- NOTE | 2017-02-15 10:17 | HHI.DCPOC ---
Discharge Care Plan Diagnosis: (1) Incomplete with delayed or excessive hemorrhage Report Symptoms to Your Doctor -Temperature above 100.5 degrees -Redness, of incision or excessive or foul smelling drainage -Unusual pain or calf pain -Increased vaginal bleeding -Painful or difficulty urinating -Feelings of extreme sadness or anxiety after 2 weeks Goals to Promote Your Health * To prevent worsening of your condition and complications * To maintain your health at the optimal level Directions to Meet Your Goals Take your medications as prescribed Follow your dietary instruction Follow activity as directed Ensure plenty of rest for recovery Drink fluids for hydration Keep your appointments as scheduled Take your immunizations and boosters as scheduled If your symptoms worsen call your PCP, if no PCP go to Urgent Care Center or Emergency Room Smoking is Dangerous to Your Health. Avoid second hand smoke Call the 24-hour crisis hotline for domestic abuse at Pita Ugalde MD R2 Feb 15, 2017 10:17
[2017-02-20] MEDS ORDERED: FE FCAP PO (10:00)
[2017-02-20] MEDS ORDERED: FERR200T PO (10:00)
== END 2017-02-15 11:42 | disposition home or self-care (01) ==
LOC: NEPE 07:10 → NEDA 14:59 → UNDOADMOB 14:59 → HOCB 18:21 → NEDA 18:21 → UNDODISOB 02-15 11:42
PROVIDERS: ADMIT Obstetrics & Gynecology; ATTEND Obstetrics & Gynecology
DX: O03.1 Delayed or excessive hemorrhage following incomplete spontaneous abortion (principal); D62 Acute posthemorrhagic anemia; R50.9 Fever, unspecified; R42 Dizziness and giddiness; R11.0 Nausea; Z87.59 Personal history of other complications of pregnancy, childbirth and the puerperium
CPT/HCPCS: 36430; 76700; 76817; 76856; 80048; 81001; 84702; 84703; 85025; 86850; 86900; 86901; 86920; 96360; 99285; G0378; J2405; J7030; J7050; P9016

== ENCOUNTER 2017-02-17 13:33 | Emergency (ER) | payer MEDICAID ==
[~2017-02-17] VITALS: Ht 162.6 cm; Wt 42.0 kg
[~2017-02-17 13:33] MED LIST changes: +METH-703 PO; -PROC10TA PO
[2017-02-17 13:35] VITALS: BP 115/75; PULSE 96; RESP 16; TEMP 98.3; O2SAT 98
--- NOTE | 2017-02-17 13:49 | PD ---
Physical Exam Date Seen by Provider: Feb 17, 2017 Data Data Last Documented VS Vital Signs Date Time Temp Pulse Resp B/P Pulse Ox O2 Delivery O2 Flow Rate FiO2 02/17/17 13:35 98.3 96 16 115/75 98 MDM Supervised Visit with MARIA L: No Narrative Course 26 YO F with complaint of medication error. Patient states she was told that Methergine was to be called into the pharmacy for her, but no pharmacy has been able to fill it. Had blurry vision, headache and lightheadedness yesterday and this AM. No vaginal bleeding today. Seen 4 days ago, admitted for anemia and vaginal bleeding. Vitals reviewed. Patient seen in triage, awaiting bed placement. Eleanor Hernandez Feb 17, 2017 13:49
--- NOTE | 2017-02-17 15:12 | PD ---
HPI Chief Complaint: Headache Time Seen by Provider: 15:12 Travel History International Travel<30 days: No Contact w/Intl Traveler<30days: No Traveled to known affect area: No History of Present Illness HPI 26-year-old female came to the emergency room with some headache and dizziness. Patient said that she had a miscarriage few days ago. She was in the hospital and received a unit of blood. She was discharged home on Methergine but could not get it filled. Meanwhile her bleeding has almost stopped. She is here not for the bleeding but more for the headache. Vital signs are stable. [facility] Past Medical History Narrative Medical list of her past medical, surgical, social and family history was reviewed from the nursing note. ADHD: No Bipolar Disorder: Yes (DOES NOT TAKE MEDS) Cancer: No Cardiovascular Problems: No Diabetes: No Diminished Hearing: No Genitourinary: Yes (UTI) Psychiatric: Yes Respiratory: No Immunizations Current: Yes Migraines: No Seizures: No Thyroid Disease: No Ulcer: No ?: Not Menopausal: No : 3 Para: 2 Miscarriage: 1 : 0 Past Surgical History Appendectomy: No Cholecystectomy: No Other Surgery: No Social History Alcohol Use: No Tobacco Use: No Substance Use: Yes ([place]) Allergies-Medications (Allergen,Severity, Reaction): Coded Allergies: No Known Allergies (Unverified , 02/14/17) Comments No known drug allergies. Reported Meds & Prescriptions Reported Meds & Active Scripts Active Feosol (Ferrous Sulfate) 200 Mg Tab 200 Mg PO BIDPC Methergine (Methylergonovine Maleate) 0.2 Mg Tab 0.2 Mg PO Q4HR Narrative Medication List of her home medications reviewed from the nursing note. Review of Systems Except as stated in HPI: all other systems reviewed are Neg Physical Exam Narrative GENERAL: Awake, alert, no obvious distress SKIN: Focused skin assessment warm/dry. Pale HEAD: Atraumatic. Normocephalic. EYES: Pupils equal and round. No scleral icterus. No injection or drainage. ENT: No nasal bleeding or discharge. Mucous membranes pink and moist. NECK: Trachea midline. No JVD. CARDIOVASCULAR: Regular rate and rhythm. No murmur appreciated. RESPIRATORY: No accessory muscle use. Clear to auscultation. Breath sounds equal bilaterally. GASTROINTESTINAL: Abdomen soft, non-tender, nondistended. Hepatic and splenic margins not palpable. MUSCULOSKELETAL: No obvious deformities. No clubbing. No cyanosis. No edema. NEUROLOGICAL: Awake and alert. No obvious cranial nerve deficits. Motor grossly within normal limits. Normal speech. PSYCHIATRIC: Appropriate mood and affect; insight and judgment normal. Data Data Last Documented VS Vital Signs Date Time Temp Pulse Resp B/P Pulse Ox O2 Delivery O2 Flow Rate FiO2 02/17/17 17:55 78 18 110/81 100 02/17/17 13:35 98.3 Orders Complete Blood Count With Diff (02/17/17 15:15) Basic Metabolic Panel (Bmp) (02/17/17 15:15) Sodium Chlor 0.9% 1000 Ml Inj (Ns 1000 M (02/17/17 15:30) Type And Screen (02/17/17 15:18) Potassium Chloride Eff (K-Lyte Cl Eff) (02/17/17 16:30) Labs Laboratory Tests Test 02/17/17 15:25 White Blood Count 5.6 TH/MM3 Red Blood Count 2.79 MIL/MM3 Hemoglobin 8.3 GM/DL Hematocrit 23.8 % Mean Corpuscular Volume 85.5 FL Mean Corpuscular Hemoglobin 29.6 PG Mean Corpuscular Hemoglobin 34.7 % Concent Red Cell Distribution Width 16.1 % Platelet Count 352 TH/MM3 Mean Platelet Volume 7.1 FL Neutrophils (%) (Auto) 49.3 % Lymphocytes (%) (Auto) 37.6 % Monocytes (%) (Auto) 8.2 % Eosinophils (%) (Auto) 3.7 % Basophils (%) (Auto) 1.2 % Neutrophils # (Auto) 2.8 TH/MM3 Lymphocytes # (Auto) 2.1 TH/MM3 Monocytes # (Auto) 0.5 TH/MM3 Eosinophils # (Auto) 0.2 TH/MM3 Basophils # (Auto) 0.1 TH/MM3 CBC Comment DIFF FINAL Differential Comment Sodium Level 143 MEQ/L Potassium Level 3.3 MEQ/L Chloride Level 110 MEQ/L Carbon Dioxide Level 29.6 MEQ/L Anion Gap 3 MEQ/L Blood Urea Nitrogen 9 MG/DL Creatinine 0.57 MG/DL Estimat Glomerular Filtration 129 ML/MIN Rate Random Glucose 79 MG/DL Calcium Level 8.2 MG/DL Blood Type O POSITIVE Antibody Screen NEGATIVE MDM Medical Decision Making Medical Screen Exam Complete: Yes Emergency Medical Condition: Yes Medical Record Reviewed: Yes Differential Diagnosis Anemia, headache Narrative Course 3:36 PM patient's last hemoglobin was 8.5 before she left Hospital. Awaiting for the blood test result. Patient will be getting IV fluid bolus. Procedures EKG Prior to Arrival: No Diagnosis Primary Impression: Symptomatic anemia Additional Impression: Headache Qualified Code: R51 - Acute nonintractable headache, unspecified headache type Referrals: Primary Care Physician Additional Instructions: Please return to the ER if the condition worsens or any other new concerns. Take the medication as per the prescription direction. Med/Other Pt SpecificInfo: Prescription(s) given Scripts Ferrous Sulfate (Feosol)200 Mg [id number] Mg PO BIDPC #60 TAB Ref 0 Prov:Corrine Garcia MD 02/17/17 Disposition: 01 DISCHARGE HOME Condition: Stable Corrine Garcia MD Feb 17, 2017 15:12
[2017-02-17] MEDS ORDERED: SODIUM CHLOR 0.9% 1000 ML INJ 1,000 ML IV ONE (15:30)
[2017-02-17 15:47] LABS: AUTOMATED NEUTROPHIL # 2.8 TH/MM3 (1.8-7.7); BASOPHIL # 0.1 TH/MM3 (0-0.2); BASOPHIL % 1.2 % (0.0-2.0); EOSINOPHIL # 0.2 TH/MM3 (0-0.4); EOSINOPHIL % 3.7 % (0.0-4.0); HEMATOCRIT 23.8 % (35.0-46.0); HEMO FLAGS DIFF FINAL; LYMPH % 37.6 % (9.0-44.0); LYMPHOCYTE # 2.1 TH/MM3 (1.0-4.8); MEAN CELL VOLUME 85.5 FL (80.0-100.0); MEAN CORPUSCULAR HEMOGLOBIN 29.6 PG (27.0-34.0); MEAN CORPUSCULAR HGB CONC 34.7 % (32.0-36.0); MONO % 8.2 % (0.0-8.0); NEUT % 49.3 % (16.0-70.0); PLATELET COUNT 352 TH/MM3 (150-450); RED BLOOD COUNT 2.79 MIL/MM3 (4.00-5.30); RED CELL DISTRIBUTION WIDTH 16.1 % (11.6-17.2); WHITE BLOOD COUNT 5.6 TH/MM3 (4.0-11.0)
[2017-02-17] MEDS ORDERED: FERR200T PO (16:03)
[2017-02-17 16:26] LABS: BICARBONATE 29.6 MEQ/L (21.0-32.0); POTASSIUM 3.3 MEQ/L (3.5-5.1)
[2017-02-17] MEDS ORDERED: POTASSIUM CHLORIDE 25 MEQ EFFERVESCENT TAB PO ONE (16:30)
[2017-02-17 17:55] VITALS: BP 110/81
[2017-02-20] MEDS ORDERED: FE FCAP PO (10:00)
[2017-02-20] MEDS ORDERED: FERR200T PO (10:00)
== END 2017-02-17 18:11 | disposition home or self-care (01) ==
LOC: NEPD 13:33
DX: D64.9 Anemia, unspecified (principal); R51 Headache
CPT/HCPCS: 80048; 85025; 86850; 86900; 86901; 99284; J7030

== ENCOUNTER 2017-04-04 01:04 | Emergency (ER) | payer MEDICAID ==
[~2017-04-04] VITALS: Ht 162.6 cm; Wt 43.9 kg
[~2017-04-04 01:04] MED LIST changes: +FE FCAP PO; +FERR200T PO; -METH-703 PO
[2017-04-04 01:11] VITALS: BP 107/60; PULSE 88; RESP 18; TEMP 98.5; O2SAT 100
[2017-04-04 01:44] VITALS: BP 107/60; PULSE 88; RESP 18; TEMP 98.5; O2SAT 100
[2017-04-04] MEDS ORDERED: ONDANSETRON HCL 4 MG/2 ML VIAL IV PUSH ONE (02:30)
[2017-04-04] MEDS ORDERED: SODIUM CHLORID 0.9% 500 ML INJ 500 ML IV ONE (02:30)
[2017-04-04] MEDS ORDERED: METOCLOPRAMIDE HCL 10 MG/2 ML VIAL IV PUSH ONE (02:45)
[2017-04-04 02:51] LABS: BLOOD, URINE LARGE (NEG); GLUCOSE,URINE NEG (NEG); KETONE, URINE 15 mg/dL (NEG)
[2017-04-04 02:54] LABS: AUTOMATED NEUTROPHIL # 12.1 TH/MM3 (1.8-7.7); BASOPHIL # 0.1 TH/MM3 (0-0.2); BASOPHIL % 0.9 % (0.0-2.0); EOSINOPHIL % 0.1 % (0.0-4.0); HEMATOCRIT 40.6 % (35.0-46.0); HEMO FLAGS DIFF FINAL; LYMPH % 7.7 % (9.0-44.0); MEAN CELL VOLUME 88.6 FL (80.0-100.0); MEAN CORPUSCULAR HEMOGLOBIN 29.8 PG (27.0-34.0); MEAN CORPUSCULAR HGB CONC 33.6 % (32.0-36.0); MONO % 2.1 % (0.0-8.0); NEUT % 89.2 % (16.0-70.0); PLATELET COUNT 309 TH/MM3 (150-450); RED BLOOD COUNT 4.58 MIL/MM3 (4.00-5.30); RED CELL DISTRIBUTION WIDTH 14.1 % (11.6-17.2); WHITE BLOOD COUNT 13.5 TH/MM3 (4.0-11.0)
[2017-04-04 03:01] LABS: NITRITE,URINE POS (NEG)
[2017-04-04 03:02] LABS: URINE COLOR AMBER (YELLW/STRAW)
[2017-04-04 03:04] LABS: BACTERIA, URINE MANY /hpf; COMMENT (UR) CULTURE INDICATED; CULTURE IF INDICATED CULTURE INDICATED; SQUAMOUS EPITHELIAL CELL URINE > 8 /hpf (0-5)
[2017-04-04 03:11] LABS: POTASSIUM 3.6 MEQ/L (3.5-5.1)
[2017-04-04 03:15] LABS: BICARBONATE 22.4 MEQ/L (21.0-32.0)
[2017-04-04] MEDS ORDERED: cefTRIAXone INJ 1,000 MG in SODIUM CHLORIDE 0.9% INJ 100 ML IV ONE (03:30)
--- NOTE | 2017-04-04 03:30 | PD ---
HPI Chief Complaint: Anxiety Time Seen by Provider: 02:23 Travel History International Travel<30 days: No Contact w/Intl Traveler<30days: No Traveled to known affect area: No History of Present Illness HPI 26-year-old female presents to the emergency department for concern of possible vaginal bleeding. Patient states every time she urinates she notices blood in her urine. Patient denies any bleeding or spotting on clothing or using a tampon or sanitary napkin. Patient states she's felt hot and cold. Patient recently had an elective . Patient is 4 para 2 AB 1, ectopic 1. Patient is concerned there may she may still be anemic as after her and she required a blood transfusion. Patient has a concerns or complaints. Patient rates her pain 0/10 intensity. Patient is unable to identify exacerbating or alleviating factors. Onset this evening. PFSH Past Medical History Narrative Medical Bipolar disorder 4 para 2 AB 1 ectopic 1 GERD UTI anemia blood transfusion tobacco use marijuana use; nursing notes reviewed ADHD: No Bipolar Disorder: Yes (DOES NOT TAKE MEDS) Cancer: No Cardiovascular Problems: No Diabetes: No Diminished Hearing: No Gastrointestinal Disorders: Yes Genitourinary: Yes (UTI) Psychiatric: Yes Respiratory: No Immunizations Current: Yes Migraines: No Seizures: No Thyroid Disease: No Ulcer: No Tetanus Vaccination: < 5 Years Influenza Vaccination: Yes ?: Not LMP: 12/12/16 Menopausal: No : 4 Para: 2 Miscarriage: 1 : 1 Past Surgical History Surgical History: No Previous Surgery Appendectomy: No Cholecystectomy: No Other Surgery: No Social History Alcohol Use: No Tobacco Use: Yes (1/2 PPD) Substance Use: Yes ([place]) Allergies-Medications (Allergen,Severity, Reaction): Coded Allergies: No Known Allergies (Unverified , 04/04/17) Reported Meds & Prescriptions Reported Meds & Active Scripts Active Pyridium (Phenazopyridine HCl) 100 Mg Tab 100 Mg PO Q8H PRN Phenergan (Promethazine HCl) 25 Mg Tablet 25 Mg PO Q6H PRN Cipro (Ciprofloxacin HCl) 500 Mg Tab 500 Mg PO BID 10 Days Review of Systems Except as stated in HPI: all other systems reviewed are Neg General / Constitutional: Positive: Chills, No: Fever HENT: No: Congestion Cardiovascular: No: Chest Pain or Discomfort Respiratory: No: Shortness of Breath Gastrointestinal: Positive: Nausea, No: Abdominal Pain Genitourinary: Positive: Hematuria, No: Dysuria Musculoskeletal: No: Myalgias, Arthralgias Skin: No Rash Neurologic: Positive: Weakness Psychiatric: Positive: Anxiety Endocrine: No: Heat Intolerance Hematologic/Lymphatic: No: Easy Bruising Physical Exam Narrative CBC & BMP Diagram 04/04/17 02:40 Vital Signs Date Time Temp Pulse Resp B/P Pulse Ox O2 Delivery O2 Flow Rate FiO2 04/04/17 04:57 85 18 94/45 99 04/04/17 01:53 88 18 04/04/17 01:44 98.5 88 18 107/60 100 04/04/17 01:11 98.5 88 18 107/60 100 Data Data Last Documented VS Vital Signs Date Time Temp Pulse Resp B/P Pulse Ox O2 Delivery O2 Flow Rate FiO2 04/04/17 04:57 85 18 94/45 99 04/04/17 01:44 98.5 Orders Complete Blood Count With Diff (04/04/17 02:23) Basic Metabolic Panel (Bmp) (04/04/17 02:23) Urinalysis - C+S If Indicated (04/04/17 02:23) Ed Urine Pregnancytest Poc (04/04/17 02:23) Sodium Chlorid 0.9% 500 Ml Inj (Ns 500 M (04/04/17 02:30) Ondansetron Inj (Zofran Inj) (04/04/17 02:30) Metoclopramide Inj (Reglan Inj) (04/04/17 02:45) Urine Culture (04/04/17 02:28) Ceftriaxone Inj (Rocephin Inj) (04/04/17 03:30) Labs Laboratory Tests Test 04/04/17 04/04/17 02:28 02:40 Urine Color SUSIE Urine Turbidity CLOUDY Urine pH 6.0 Urine Specific [place] 1.030 Urine Protein 100 mg/dL Urine Glucose (UA) NEG mg/dL Urine Ketones 15 mg/dL Urine Occult Blood LARGE Urine Nitrite POS Urine Bilirubin NEG Urine Leukocyte Esterase TRACE Urine RBC 50-99 /hpf Urine WBC 6-8 /hpf Urine Squamous Epithelial > 8 /hpf Cells Urine Bacteria MANY /hpf Microscopic Urinalysis Comment CULTURE INDICATED White Blood Count 13.5 TH/MM3 Red Blood Count 4.58 MIL/MM3 Hemoglobin 13.7 GM/DL Hematocrit 40.6 % Mean Corpuscular Volume 88.6 FL Mean Corpuscular Hemoglobin 29.8 PG Mean Corpuscular Hemoglobin 33.6 % Concent Red Cell Distribution Width 14.1 % Platelet Count 309 TH/MM3 Mean Platelet Volume 7.3 FL Neutrophils (%) (Auto) 89.2 % Lymphocytes (%) (Auto) 7.7 % Monocytes (%) (Auto) 2.1 % Eosinophils (%) (Auto) 0.1 % Basophils (%) (Auto) 0.9 % Neutrophils # (Auto) 12.1 TH/MM3 Lymphocytes # (Auto) 1.0 TH/MM3 Monocytes # (Auto) 0.3 TH/MM3 Eosinophils # (Auto) 0.0 TH/MM3 Basophils # (Auto) 0.1 TH/MM3 CBC Comment DIFF FINAL Differential Comment Sodium Level 138 MEQ/L Potassium Level 3.6 MEQ/L Chloride Level 107 MEQ/L Carbon Dioxide Level 22.4 MEQ/L Anion Gap 9 MEQ/L Blood Urea Nitrogen 13 MG/DL Creatinine 0.85 MG/DL Estimat Glomerular Filtration 81 ML/MIN Rate Random Glucose 104 MG/DL Calcium Level 8.8 MG/DL MDM Medical Decision Making Medical Screen Exam Complete: Yes Emergency Medical Condition: Yes Medical Record Reviewed: Yes Interpretation(s) poc hcg: negative CBC & BMP Diagram 04/04/17 02:40 Vital Signs Date Time Temp Pulse Resp B/P Pulse Ox O2 Delivery O2 Flow Rate FiO2 04/04/17 01:53 88 18 04/04/17 01:44 98.5 88 18 107/60 100 04/04/17 01:11 98.5 88 18 107/60 100 UA: Positive WBCs positive nitrites positive leukocyte Estrace positive large blood many bacteria culture indicated Differential Diagnosis Generalized weakness, anemia, electronic disturbance, , UTI Narrative Course IV access obtained specimens collected and sent for resulting patient administered Reglan for complaint of nausea and IV fluid bolus 500 cc weight- based Urinalysis markedly abnormal patient given first dose of IV antibiotic Rocephin 1 g and will be discharged with oral antibiotics Patient clinically improved and aware of lab results in stable for outpatient management Diagnosis Primary Impression: UTI (urinary tract infection) Referrals: Primary Care Physician call for appointment Patient Instructions: General Instructions Additional Instructions: Increase fluid hydration Take acetaminophen/Tylenol as needed for fever 100.4F or greater Complete course of antibiotic as prescribed Take Phenergan as prescribed as needed for nausea and/or vomiting Med/Other Pt SpecificInfo: Prescription(s) given Scripts Phenazopyridine (Pyridium)100 Mg [id number] Mg PO Q8H PRN (DYSURIA) #6 TAB Ref 0 Prov:Pascale Marina MD 04/04/17 Promethazine (Phenergan)25 Mg [id number] Mg PO Q6H PRN (NAUSEA OR VOMITING) #10 TAB Ref 0 Prov:Pascale Marina MD 04/04/17 Ciprofloxacin (Cipro)500 Mg Inf950 Mg PO BID 10 Days Ref 0 Prov:Pascale Marina MD 04/04/17 Disposition: 01 DISCHARGE HOME Condition: Stable Pascale Marina MD Apr 04, 2017 03:30
[2017-04-04] MEDS ORDERED: PHEN0.4T PO (03:38)
[2017-04-04] MEDS ORDERED: PROM25TA10 PO (03:38)
[2017-04-04] MEDS ORDERED: CIPR-9 PO (03:38)
[2017-04-04 04:57] VITALS: BP 94/45
== END 2017-04-04 04:58 | disposition home or self-care (01) ==
LOC: PHED 01:04
DX: N39.0 Urinary tract infection, site not specified (principal); B95.1 Streptococcus, group B, as the cause of diseases classified elsewhere; R31.9 Hematuria, unspecified
CPT/HCPCS: 80048; 81001; 84703; 85025; 87086; 87106; 96361; 96365; 96375; 99284; J0696; J2765; J7040

== ENCOUNTER 2017-05-14 00:50 | Emergency (ER) | payer MEDICAID ==
[~2017-05-14 00:50] MED LIST changes: +CIPR-9 PO; -FE FCAP PO; -FERR200T PO; +PHEN0.4T PO; +PROM25TA10 PO
[2017-05-14 00:51] VITALS: BP 112/66; PULSE 93; RESP 16; TEMP 97.7; O2SAT 100
[2017-05-14] MEDS ORDERED: SODIUM CHLOR 0.9% 1000 ML INJ 1,000 ML IV ONE (02:30)
[2017-05-14] MEDS ORDERED: SODIUM CHLORIDE 0.9% FLUSH 10 ML FLUSH IVF PRN ×2 (02:30)
[2017-05-14] MEDS ORDERED: METOCLOPRAMIDE HCL 10 MG/2 ML VIAL IV PUSH ONE (02:30)
[2017-05-14 02:32] VITALS: O2SAT 98
--- NOTE | 2017-05-14 02:52 | PD ---
HPI Chief Complaint: GI Complaint Time Seen by Provider: 02:26 Travel History International Travel<30 days: No Contact w/Intl Traveler<30days: No Traveled to known affect area: No History of Present Illness HPI 26-year-old female presents to the emergency department by private transportation for evaluation of nausea with vomiting times one day. No diarrhea. Intermittent epigastric discomfort denies any generalized abdominal pain. No fever or chills. Patient denies any hematemesis coffee-ground emesis melena hematochezia. Patient denies dysuria frequency urgency or flank pain. Last period patient is unsure of as she has irregular menses. Patient denies . Patient denies any dietary indiscretion well water ingestion or foreign travel. Patient denies any pain. PFSH Past Medical History Narrative Medical Bipolar disorder UTI Ab2 marijuana use; nursing notes reviewed ADHD: No Bipolar Disorder: Yes (DOES NOT TAKE MEDS) Cancer: No Cardiovascular Problems: No Diabetes: No Diminished Hearing: No Gastrointestinal Disorders: Yes Genitourinary: Yes (UTI) Psychiatric: Yes Respiratory: No Immunizations Current: Yes Migraines: No Seizures: No Thyroid Disease: No Ulcer: No ?: Unknown LMP: UNKNOWN Menopausal: No : 4 Para: 2 Miscarriage: 1 : 1 Past Surgical History Appendectomy: No Cholecystectomy: No Other Surgery: No Social History Alcohol Use: No Tobacco Use: Yes (/2 PPD) Substance Use: Yes ([place]) Allergies-Medications (Allergen,Severity, Reaction): Coded Allergies: ondansetron (Verified Allergy, Severe, Nausea/Vomiting, 05/14/17) Reported Meds & Prescriptions Reported Meds & Active Scripts Active Phenergan Supp (Promethazine HCl) 25 Mg Supp 25 Mg RECTAL Q6H PRN Pyridium (Phenazopyridine HCl) 100 Mg Tab 100 Mg PO Q8H PRN Phenergan (Promethazine HCl) 25 Mg Tablet 25 Mg PO Q6H PRN Cipro (Ciprofloxacin HCl) 500 Mg Tab 500 Mg PO BID 10 Days Review of Systems Except as stated in HPI: all other systems reviewed are Neg General / Constitutional: No: Fever, Chills HENT: No: Sore Throat, Congestion Cardiovascular: No: Chest Pain or Discomfort Respiratory: No: Shortness of Breath Gastrointestinal: Positive: Nausea, Vomiting, No: Diarrhea, Abdominal Pain Genitourinary: No: Flank Pain Musculoskeletal: No: Myalgias, Arthralgias Skin: No Rash Neurologic: No: Weakness Psychiatric: No: Anxiety Hematologic/Lymphatic: No: Lymph Node Enlargement Physical Exam Narrative GENERAL: Well-developed well-nourished thin female in no acute distress no respiratory distress SKIN: Warm and dry. HEAD: Normocephalic. EYES: No scleral icterus. No injection or drainage. NECK: Supple, trachea midline. No JVD or lymphadenopathy. CARDIOVASCULAR: Regular rate and rhythm without murmurs, gallops, or rubs. RESPIRATORY: Breath sounds equal bilaterally. No accessory muscle use. GASTROINTESTINAL: Abdomen soft, non-tender, no reproducible tenderness no guarding no rebound. Nondistended. MUSCULOSKELETAL: No cyanosis, or edema. BACK: Nontender without obvious deformity. No CVA tenderness. Data Data Last Documented VS Vital Signs Date Time Temp Pulse Resp B/P (MAP) Pulse Ox O2 Delivery O2 Flow Rate FiO2 05/14/17 03:50 98.5 78 16 113/64 (80) 100 Room Air Orders Orders Iv Access Insert/Monitor (05/14/17 02:26) Ecg Monitoring (05/14/17 02:26) Oximetry (05/14/17 02:26) Sodium Chloride 0.9% Flush (Ns Flush) (05/14/17 02:30) Complete Blood Count With Diff (05/14/17 02:26) Basic Metabolic Panel (Bmp) (05/14/17 02:26) Sodium Chloride 0.9% Flush (Ns Flush) (05/14/17 02:30) Ua Includes Microscopic (05/14/17 02:26) Ed Urine Pregnancytest Poc (05/14/17 02:26) Metoclopramide Inj (Reglan Inj) (05/14/17 02:30) Sodium Chlor 0.9% 1000 Ml Inj (Ns 1000 M (05/14/17 02:30) Labs Laboratory Tests Test 05/14/17 05:05 05/14/17 06:03 White Blood Count 12.7 TH/MM3 Red Blood Count 4.57 MIL/MM3 Hemoglobin 13.2 GM/DL Hematocrit 39.6 % Mean Corpuscular Volume 86.5 FL Mean Corpuscular Hemoglobin 28.8 PG Mean Corpuscular Hemoglobin Concent 33.3 % Red Cell Distribution Width 13.6 % Platelet Count 287 TH/MM3 Mean Platelet Volume 7.1 FL Neutrophils (%) (Auto) 88.1 % Lymphocytes (%) (Auto) 9.6 % Monocytes (%) (Auto) 1.8 % Eosinophils (%) (Auto) 0.1 % Basophils (%) (Auto) 0.4 % Neutrophils # (Auto) 11.2 TH/MM3 Lymphocytes # (Auto) 1.2 TH/MM3 Monocytes # (Auto) 0.2 TH/MM3 Eosinophils # (Auto) 0.0 TH/MM3 Basophils # (Auto) 0.1 TH/MM3 CBC Comment DIFF FINAL Differential Comment Blood Urea Nitrogen 10 MG/DL Creatinine 0.61 MG/DL Random Glucose 106 MG/DL Calcium Level 8.1 MG/DL Sodium Level 141 MEQ/L Potassium Level 3.9 MEQ/L Chloride Level 112 MEQ/L Carbon Dioxide Level 20.5 MEQ/L Anion Gap 9 MEQ/L Estimat Glomerular Filtration Rate 120 ML/MIN Urine Color YELLOW Urine Turbidity HAZY Urine pH 5.5 Urine Specific [place] 1.016 Urine Protein NEG mg/dL Urine Glucose (UA) NEG mg/dL Urine Ketones 80 mg/dL Urine Occult Blood TRACE Urine Nitrite NEG Urine Bilirubin NEG Urine Urobilinogen LESS THAN 2.0 MG/DL Urine Leukocyte Esterase NEG Urine RBC 1 /hpf Urine WBC 2 /hpf Urine Squamous Epithelial Cells 3 /hpf Urine Bacteria RARE /hpf Urine Mucus FEW /lpf MDM Medical Decision Making Medical Screen Exam Complete: Yes Emergency Medical Condition: Yes Medical Record Reviewed: Yes Interpretation(s) CBC & BMP Diagram 05/14/17 05:05 Calcium Level 8.1 L Vital Signs Date Time Temp Pulse Resp B/P (MAP) Pulse Ox O2 Delivery O2 Flow Rate FiO2 05/14/17 03:50 98.5 78 16 113/64 (80) 100 Room Air 05/14/17 02:32 98 Room Air 05/14/17 00:51 97.7 93 16 112/66 (81) 100 Room Air poc hcg: negative UA: ketones; cx not indicated Differential Diagnosis Nausea/vomiting, gastroenteritis, peptic ulcer disease, biliary colic, pancreatitis, viral syndrome, dehydration, elect light disturbance Narrative Course IV access obtained specimens collected and sent for resulting [id number] hCG performed which is negative patient given 1 L normal saline and Reglan 5 mg IV Patient resting comfortably continues to wait for lab results Lab identified that we collect required an metabolic panel pending Patient comfortable no further nausea no vomiting Patient is stable for outpatient management Diagnosis Primary Impression: Vomiting Additional Impression: Gastroenteritis Referrals: Primary Care Physician call for appointment Patient Instructions: General Instructions Additional Instructions: Increase fluid hydration Follow clear liquid diet for next 12-24 hours advance as tolerated to bland/ Sacha diet then regular diet Take Phenergan suppository as needed for nausea and/or vomiting Return to the emergency department for pain fever vomiting or any concerns May take acetaminophen/Tylenol as needed for minor pain or for fever 100.4F or greater Med/Other Pt SpecificInfo: Prescription(s) given Scripts Promethazine Supp (Phenergan Supp) 25 Mg Supp 25 MG RECTAL Q6H Y for NAUSEA OR VOMITING, #7 SUPP 0 Refills Prov: Pascale Marina MD 05/14/17 Disposition: 01 DISCHARGE HOME Condition: Stable Pascale Marina MD May 14, 2017 02:52
[2017-05-14 03:50] VITALS: BP 113/64; PULSE 78; RESP 16; TEMP 98.5; O2SAT 100
[2017-05-14 05:11] LABS: AUTOMATED NEUTROPHIL # 11.2 TH/MM3 (1.8-7.7); BASOPHIL # 0.1 TH/MM3 (0-0.2); BASOPHIL % 0.4 % (0.0-2.0); EOSINOPHIL % 0.1 % (0.0-4.0); HEMATOCRIT 39.6 % (35.0-46.0); HEMO FLAGS DIFF FINAL; LYMPH % 9.6 % (9.0-44.0); LYMPHOCYTE # 1.2 TH/MM3 (1.0-4.8); MEAN CELL VOLUME 86.5 FL (80.0-100.0); MEAN CORPUSCULAR HEMOGLOBIN 28.8 PG (27.0-34.0); MEAN CORPUSCULAR HGB CONC 33.3 % (32.0-36.0); MONO % 1.8 % (0.0-8.0); NEUT % 88.1 % (16.0-70.0); PLATELET COUNT 287 TH/MM3 (150-450); RED BLOOD COUNT 4.57 MIL/MM3 (4.00-5.30); RED CELL DISTRIBUTION WIDTH 13.6 % (11.6-17.2); WHITE BLOOD COUNT 12.7 TH/MM3 (4.0-11.0)
[2017-05-14 06:04] LABS: BICARBONATE 20.5 MEQ/L (21.0-32.0); POTASSIUM 3.9 MEQ/L (3.5-5.1)
[2017-05-14] MEDS ORDERED: PROM1SUP7 RECTAL (06:31)
[2017-05-14 06:34] LABS: BACTERIA, URINE RARE /hpf; BLOOD, URINE TRACE (NEG); GLUCOSE,URINE NEG (NEG); KETONE, URINE 80 mg/dL (NEG); MUCUS URINE FEW /lpf (OCC); NITRITE,URINE NEG (NEG); PH, URINE 5.5 (5.0-8.5); SQUAMOUS EPITHELIAL CELL URINE 3 /hpf (0-5); URINE COLOR YELLOW (YELLW/STRAW)
== END 2017-05-14 07:09 | disposition home or self-care (01) ==
LOC: NEPC 00:50
DX: K52.9 Noninfective gastroenteritis and colitis, unspecified (principal); F31.9 Bipolar disorder, unspecified; F17.200 Nicotine dependence, unspecified, uncomplicated; Z79.899 Other long term (current) drug therapy
CPT/HCPCS: 80048; 81001; 84703; 85025; 96361; 96374; 99284; J2765; J7030